=== PATIENT | female | born 1985 | race Caucasian/White ===

== ENCOUNTER 2020-08-23 10:52 | Emergency (ER) | payer MEDICAID, SELFPAY ==
[2020-08-23 11:34] LABS: Absolute Lymphocytes (CBC) 0.9 K/uL (0.7-4.9); Lymphocytes % 11.6 % (15.3-44.8); MPV 8.9 fL (7.6-11.3); RBC Red Blood Cell Count 3.96 M/uL (3.86-4.86)
[2020-08-23] MEDS ORDERED: NA CHLORIDE 0.9% 1,000 ML ONE (11:49)
[2020-08-23] MEDS ORDERED: ONDANSETRON 4 MG/2 ML VIAL ONE (11:49)
[2020-08-23 11:54] LABS: Albumin 4.2 g/dL (3.4-5.0); Bilirubin Direct 0.2 mg/dL (0-0.2); Bilirubin Total 0.6 mg/dL (0.2-1.0); Potassium 3.8 mmol/L (3.5-5.1); Protein, Total 8.2 g/dL (6.4-8.2)
[2020-08-23 12:59] LABS: Blood Morphology Comment NOT SEEN (NOT SEEN); Platelet Estimate ADEQ
[2020-08-23] MEDS ORDERED: KETOROLAC 30 MG/ML INJ ONE (12:59)
--- NOTE | 2020-08-23 13:16 | RAD REPORT ---
EXAM DESCRIPTION: CTAbdomen Pelvis W Contrast - 08/23/2020 1:05 pm CLINICAL HISTORY: Abdominal pain. ABD PAIN COMPARISON: No comparisons TECHNIQUE: Biphasic CT imaging of the abdomen and pelvis was performed with 100 ml non-ionic IV cont rast. All CT scans are performed using dose optimization technique as appropriate and may include automated exposure control or mA/KV adjustment according to patient size. FINDINGS: The lung bases are clear. The liver, spleen, pancreas, adrenal glands and kidneys are within normal limits. No bowel obstruction, free air, free fluid or abscess. The appendix is normal. No evidence of signi ficant lymphadenopathy. No suspicious bony findings. IMPRESSION: No acute intra-abdominal or pelvic finding.
--- NOTE | 2020-08-23 13:28 | ER ---
Nurse's Notes [facility] Name: Petra Aj Age: 35 yrs Sex: Female : 1985 Arrival Date: 08/23/2020 Time: 10:55 Bed 2 Private MD: Diagnosis: Nausea and vomiting;Diarrhea, unspecified Presentation: 08/23 11:01 Chief complaint: Patient states: N/VD with abdominal pain since 5 am. No fever. ll1 Coronavirus screen: Client denies travel out of the [place] in the last 14 days. At this time, the client does not indicate any symptoms associated with coronavirus-19. Ebola Screen: Patient denies travel to an Ebola-affected area in the 21 days before illness onset. Initial Sepsis Screen: Does the patient meet any 2 criteria? No. Patient's initial sepsis screen is negative. Risk Assessment: Do you want to hurt yourself or someone else? Patient reports no desire to harm self or others. Onset of symptoms was August 23, 2020. 11:01 Method Of Arrival: Wheelchair ll1 11:01 Acuity: ARNOLD 3 ll1 11:45 Initial Sepsis Screen: Does the patient have a suspected source of infection? No. ph Patient's initial sepsis screen is negative. Historical: - Allergies: 11:01 PENICILLINS; ll1 - PSHx: 11:01 None; ll1 - Immunization history:: Flu vaccine is not up to date. - Social history:: Smoking status: Patient reports the use of cigarette tobacco products, smokes one-half pack cigarettes per day. Screenin:44 Abuse screen: Denies threats or abuse. Denies injuries from another. Nutritional ph screening: No deficits noted. Tuberculosis screening: No symptoms or risk factors identified. Fall Risk None identified. Assessment: 11:43 General: Appears in no apparent distress. uncomfortable, slender, well groomed, ph Behavior is cooperative, anxious, Denies fever. Pain: Complains of pain in abdomen. Neuro: Level of Consciousness is awake, alert, obeys commands, Oriented to person, place, time, situation. Cardiovascular: Capillary refill < 3 seconds in bilateral fingers Patient's skin is warm and dry. Respiratory: Airway is patent Respiratory effort is even, unlabored, Respiratory pattern is regular, symmetrical. GI: Abdomen is flat, Reports diarrhea, nausea, vomiting. Derm: Skin is intact, is healthy with good turgor, Skin is pink, warm \T\ dry. Musculoskeletal: Circulation, motion, and sensation intact. Range of motion: intact in all extremities. Vital Signs: 11:01 BP 131 / 84; Pulse 86; Resp 17; Temp 98.3; Pulse Ox 97% ; Weight 68.04 kg; Height 5 ft. ll1 5 in. (165.10 cm); Pain 6/10; 11:45 BP 128 / 78; Pulse 81; Resp 18; Pulse Ox 99% on R/A; ph 13:00 BP 124 / 72; Pulse 77; Resp 16; Pulse Ox 98% on R/A; ph 14:12 BP 126 / 78; Pulse 79; Resp 16; Temp 97.8; Pulse Ox 98% on R/A; ph 11:01 Body Mass Index 24.96 (68.04 kg, 165.10 cm) ll1 ED Course: 10:55 Patient arrived in ED. mr 10:56 Xenia Fields [facility]-C [facility]. kb 10:56 Alden Abdullahi MD is Attending Physician. kb 11:03 Triage completed. ll1 11:03 Arm band placed on Patient placed in an exam room, on a stretcher. ll1 11:09 Elicia Ko, RN is Primary Nurse. ph 11:20 Initial lab(s) drawn, by me, sent to lab. Inserted saline lock: 20 gauge in right dh3 antecubital area, using aseptic technique. Blood collected. 11:44 Patient has correct armband on for positive identification. Bed in low position. Call ph light in reach. Side rails up X 1. Pulse ox on. NIBP on. Door closed. Noise minimized. Warm blanket given. 13:05 CT Abd/Pelvis - IV Contrast Only In Process Unspecified. EDMS 14:13 No provider procedures requiring assistance completed. IV discontinued, intact, ph bleeding controlled, No redness/swelling at site. Pressure dressing applied. Administered Medications: 11:41 Drug: NS 0.9% 1000 ml Route: IV; Rate: 1000 ml; Site: right antecubital; ph 14:13 Follow up: Response: No adverse reaction; IV Status: Completed infusion; IV Intake: ph 1000ml 11:41 Drug: Zofran (Ondansetron) 4 mg Route: IVP; Site: right antecubital; ph 14:14 Follow up: Response: No adverse reaction; Nausea is decreased ph 12:49 Drug: TORadol 30 mg Route: IVP; Site: right antecubital; ph 14:14 Follow up: Response: No adverse reaction ph 13:37 Drug: Bentyl 20 mg Route: PO; em 14:14 Follow up: Response: No adverse reaction ph Intake: 14:13 IV: 1000ml; Total: 1000ml. ph Outcome: 13:28 Discharge ordered by . kb 14:13 Discharged to home ambulatory, with family. ph 14:13 Condition: good 14:13 Discharge instructions given to patient, Instructed on discharge instructions, follow up and referral plans. medication usage, Demonstrated understanding of instructions, follow-up care, medications, Prescriptions given X 2. 14:14 Patient left the ED. ph Signatures: Dispatcher [employer] EDXenia Ramirez, CAR WIPER-C CAR WIPER-Alexa Marie Edgar, RN Elicia Davey RN RN Priscilla Canela [facility] Kelly Lopez RN RN ll1
--- NOTE | 2020-08-23 13:29 | EDPHYS ---
Physician Documentation [facility] Name: Petra Aj Age: 35 yrs Sex: Female : 1985 Arrival Date: 08/23/2020 Time: 10:55 Bed 2 Private MD: ED Physician Alden Abdullahi HPI: 08/23 12:22 This 35 yrs old Female presents to ER via Wheelchair with complaints of kb Abdominal Pain, Vomiting. 12:22 The patient presents with abdominal pain. Onset: The symptoms/episode began/occurred kb this morning, at 05:00. The symptoms do not radiate. Associated signs and symptoms: Pertinent positives: nausea, vomiting, and diarrhea, Pertinent negatives: fever. The symptoms are described as constant. Modifying factors: The symptoms are alleviated by nothing, the symptoms are aggravated by nothing. Severity of pain: At its worst the pain was mild in the emergency department the pain is unchanged. The patient has not experienced similar symptoms in the past. The patient has not recently seen a physician. Historical: - Allergies: 11:01 PENICILLINS; ll1 - PSHx: 11:01 None; ll1 - Immunization history:: Flu vaccine is not up to date. - Social history:: Smoking status: Patient reports the use of cigarette tobacco products, smokes one-half pack cigarettes per day. ROS: 12:20 Constitutional: Negative for fever, chills, and weight loss, Cardiovascular: Negative kb for chest pain, palpitations, and edema, Respiratory: Negative for shortness of breath, cough, wheezing, and pleuritic chest pain, Back: Negative for injury and pain, MS/Extremity: Negative for injury and deformity, Skin: Negative for injury, rash, and discoloration, Neuro: Negative for headache, weakness, numbness, tingling, and seizure. 12:20 Abdomen/GI: Positive for abdominal pain, nausea, vomiting, and diarrhea, Negative for constipation, abdominal cramps, abdominal distension, anorexia. Exam: 12:20 Constitutional: This is a well developed, well nourished patient who is awake, alert, kb and in no acute distress. Head/Face: Normocephalic, atraumatic. Chest/axilla: Normal chest wall appearance and motion. Nontender with no deformity. No lesions are appreciated. Cardiovascular: Regular rate and rhythm with a normal S1 and S2. No gallops, murmurs, or rubs. Normal PMI, no JVD. No pulse deficits. Respiratory: Lungs have equal breath sounds bilaterally, clear to auscultation and percussion. No rales, rhonchi or wheezes noted. No increased work of breathing, no retractions or nasal flaring. Back: No spinal tenderness. No costovertebral tenderness. Full range of motion. Skin: Warm, dry with normal turgor. Normal color with no rashes, no lesions, and no evidence of cellulitis. MS/ Extremity: Pulses equal, no cyanosis. Neurovascular intact. Full, normal range of motion. Neuro: Awake and alert, GCS 15, oriented to person, place, time, and situation. Cranial nerves II-XII grossly intact. Motor strength 5/5 in all extremities. Sensory grossly intact. Cerebellar exam normal. Normal gait. 12:20 Abdomen/GI: Inspection: abdomen appears normal, Bowel sounds: normal, in all quadrants, Palpation: soft, in all quadrants, mild abdominal tenderness, in the abdomen diffusely. Vital Signs: 11:01 BP 131 / 84; Pulse 86; Resp 17; Temp 98.3; Pulse Ox 97% ; Weight 68.04 kg; Height 5 ft. ll1 5 in. (165.10 cm); Pain 6/10; 11:45 BP 128 / 78; Pulse 81; Resp 18; Pulse Ox 99% on R/A; ph 13:00 BP 124 / 72; Pulse 77; Resp 16; Pulse Ox 98% on R/A; ph 14:12 BP 126 / 78; Pulse 79; Resp 16; Temp 97.8; Pulse Ox 98% on R/A; ph 11:01 Body Mass Index 24.96 (68.04 kg, 165.10 cm) ll1 MDM: 11:04 Patient medically screened. kb 12:20 Data reviewed: vital signs, nurses notes. Data interpreted: Pulse oximetry: on room air kb is 97 %. Interpretation: normal. 13:22 Counseling: I had a detailed discussion with the patient and/or guardian regarding: the kb historical points, exam findings, and any diagnostic results supporting the discharge/admit diagnosis, lab results, radiology results, the need for outpatient follow up, a family practitioner, to return to the emergency department if symptoms worsen or persist or if there are any questions or concerns that arise at home. 10/05 11:05 Order name: Basic Metabolic Panel; Complete Time: 11:55 kb 08/23 11:05 Order name: CBC with Diff; Complete Time: 13:00 kb 08/23 11:05 Order name: Hepatic Function; Complete Time: 11:55 kb 08/23 11:05 Order name: Lipase; Complete Time: 11:55 kb 08/23 12:54 Order name: Urine Dipstick--Ancillary (enter results) bd 08/23 12:54 Order name: Urine --Ancillary (enter results) bd 08/23 11:05 Order name: IV Saline Lock; Complete Time: 11:21 kb 08/23 11:05 Order name: Labs collected and sent; Complete Time: 11:22 kb 08/23 11:56 Order name: CT Abd/Pelvis - IV Contrast Only; Complete Time: 13:20 kb 08/23 12:59 Order name: Manual Differential; Complete Time: 13:00 EDMS 08/23 11:56 Order name: Urine Dipstick-Ancillary (obtain specimen); Complete Time: 12:49 kb 08/23 11:56 Order name: Urine Test (obtain specimen); Complete Time: 12:49 kb 08/23 13:22 Order name: PO challenge; Complete Time: 13:37 kb Administered Medications: 11:41 Drug: NS 0.9% 1000 ml Route: IV; Rate: 1000 ml; Site: right antecubital; ph 14:13 Follow up: Response: No adverse reaction; IV Status: Completed infusion; IV Intake: ph 1000ml 11:41 Drug: Zofran (Ondansetron) 4 mg Route: IVP; Site: right antecubital; ph 14:14 Follow up: Response: No adverse reaction; Nausea is decreased ph 12:49 Drug: TORadol 30 mg Route: IVP; Site: right antecubital; ph 14:14 Follow up: Response: No adverse reaction ph 13:37 Drug: Bentyl 20 mg Route: PO; em 14:14 Follow up: Response: No adverse reaction ph Disposition: 17:57 Co-signature as Attending Physician, Alden Abdullahi MD. rn Disposition: 08/23/20 13:28 Discharged to Home. Impression: Nausea and vomiting, Diarrhea, unspecified. - Condition is Stable. - Discharge Instructions: Viral Gastroenteritis, Adult, [id number]. - Prescriptions for Bentyl 20 mg Oral Tablet - take 1 tablet by ORAL route every 6 hours As needed; 20 tablet. Zofran 4 mg Oral Tablet - take 1 tablet by ORAL route every 6 hours As needed; 20 tablet. - Medication Reconciliation Form, Thank You Letter, Antibiotic Education, Prescription Opioid Use form. - Follow up: Emergency Department; When: As needed; Reason: Worsening of condition. Follow up: Private Physician; When: 2 - 3 days; Reason: Recheck today's complaints, Continuance of care, Re-evaluation by your physician. Signatures: Dispatcher [employer] EDMS Xenia Fields, DEVELOPMENT TECHNOLOGIST-C DEVELOPMENT TECHNOLOGIST-Marek Tovar, RN RN Alden Figueroa MD MD rn Hall, Patricia, RN RN Kelly Lopez RN RN ll1 Corrections: (The following items were deleted from the chart) 14:14 13:28 08/23/2020 13:28 Discharged to Home. Impression: Nausea and vomiting; Diarrhea, ph unspecified. Condition is Stable. Forms are Medication Reconciliation Form, Thank You Letter, Antibiotic Education, Prescription Opioid Use. Follow up: Emergency Department; When: As needed; Reason: Worsening of condition. Follow up: Private Physician; When: 2 - 3 days; Reason: Recheck today's complaints, Continuance of care, Re-evaluation by your physician. kb
[2020-08-23] MEDS ORDERED: DICYCLOMINE HCL 10 MG CAP ONE (13:42)
[2020-08-23 14:16] LABS: Urine Blood TRACE (NEG); Urine Glucose NEGATIVE (NEG); Urine Protein NEGATIVE (NEG); Urine Specific Gravity >1.030 (1.005-1.030)
[2020-08-23 14:47] VITALS: O2SAT 98
[2020-08-23 14:48] VITALS: BP 126/78; TEMP 97.8
--- OUTSIDE RECORDS SUMMARY | 2020-08-26 05:52 | XMS REPORT | Summary of Care ---
:1985 Author Organization [facility] - Health Address [address] [place] [address] Care Team Providers Name Role Phone Peggy Castaneda Primary Care Provider Encounter Details Date Type Department Care Team Description 07/08/2020 Letter (Out) [facility] [employer] Message s Doctor Unassigned, No [address] [facility] [place] [phone] [address] [facility] [phone] [place] [address] Allergies Active Allergy Reactions Severity Noted Date Comments Penicillins Hives 11/24/2012 documented as of this encounter (statuses as of 07/08/2020) Medications Medication Sig Dispensed Refills Start Date End Date Status HYDROcodone-acetaminop Take 1 Tab by 25 Tab 0 01/07/2013 Active hen (NORCO) 5-325 mg mouth every 4 tabletIndications: (four) hours as Unspecified dental needed for Pain caries unrelieved by non-narcotic analgesics. chlorhexidine Swish and spit out 1 Bottle 0 01/07/2013 Active (PERIDEX) 0.12 % 15 mL 2 (two) mouthwashIndications: times daily. Unspecified dental caries documented as of this encounter (statuses as of 07/08/2020) Active Problems Problem Noted Date Dental caries 12/03/2012 Overview: ICD10 Diagnosis Term Regulatory Leader Utility documented as of this encounter (statuses as of 07/08/2020) Social History Tobacco Use Types Packs/Day Years Used Date Current Every Day Smoker Alcohol Use Drinks/Week oz/Week Comments Not Asked Sex Assigned at Date Recorded Not on file documented as of this encounter Last Filed Vital Signs Not on filedocumented in this encounter Plan of Treatment Date Type Specialty Care Team Description 07/08/2020 Urgent Care Family Medicine Megan Pascual, CRICKET COACH [address] [id number] Pob1, Acute Care Clinic Health Maintenance Due Date Last Done Comments VARICELLA VACCINES (1 of 2 - 1988 2-dose childhood series) Depression Screening 1999 DTaP,Tdap,and Td Vaccines (1 2006 - Tdap) PAP SMEAR 02/01/2013 02/01/2010, 05/16/2005 INFLUENZA VACCINE (#1) 2020 PNEUMOCOCCAL 0-64 YEARS Aged Out No longe r eligible based COMBINED SERIES on patient's age to complete this to pic documented as of this encounter Results Not on filedocumented in this encounter
--- OUTSIDE RECORDS SUMMARY | 2020-08-26 05:52 | XMS REPORT | Continuity of Care Document ---
:1985 Author Organization [facility] t Address [address] [place] [address] Care Team Providers Name Role Phone Pob1, Care Clinic Attending Clinician Unavailable Doctor Unassigned, Name Attending Clinician Unavailable Problems This patient has no known problems. Allergies, Adverse Reactions, Alerts This patient has no known allergies or adverse reactions. Medications This patient has no known medications. Procedures This patient has no known procedures. Encounters Start End Encounter Admission Attending Care Care Encounter Source Date/Time Date/Time Type Type Clinicians Facility Department ID 2020-07-08 2020-07-08 Urgent Pob1, Acute [facility] [id number] 15:42:00 16:23:36 [facility] [id number] [place] [id number] Chris [phone] [address] 2020-07-08 2020-07-08 Letter Doctor MOOKIE [id number] 00:00:00 00:00:00 (Out) Unassigned, [place] [id number] [place] [facility] [phone] [id number] Results This patient has no known results.
--- OUTSIDE RECORDS SUMMARY | 2020-08-26 05:52 | XMS REPORT | Summary of Care ---
:1985 Author Organization [facility] - Health Address [address] [place] [address] Care Team Providers Name Role Phone Peggy Castaneda Primary Care Provider Reason for Visit Reason Comments URI Shortness of Breath Encounter Details Date Type Department Care Team Description 07/08/[address] [facility] Family Humaira Pascual, MARIA ESTHER [address] [place] [id number] Acute URI (Primary Dx); [facility] Exposure to Covid-19 Virus; [address] [place] [address] Tobacco use disorder; [place], [place] Encounter for s moking cessation counseling [id number] Allergies Active Allergy Reactions Severity Noted Date Comments Penicillins Hives 11/24/2012 documented as of this encounter (statuses as of 07/08/2020) Medications Medication Sig Dispensed Refills Start Date End Date Status HYDROcodone-acetam Take 1 Tab by 25 Tab 0 01/07/2013 Discontinued inophen (NORCO) mouth every 4 20 (Therapy 5-325 mg (four) hours as comp leted) tabletIndications: needed for Pain Unspecified dental unrelieved by caries non-narcotic analgesics. chlorhexidine Swish and spit 1 Bottle 0 01/07/2013 07/08/20 Discontinued (PERIDEX) 0.12 % out 15 mL 2 20 ( Therapy mouthwashIndicatio (two) times completed) ns: Unspecified daily. 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 documented as of this encounter (statuses as of 07/08/2020) Social History Tobacco Use Types Packs/Day Years Used Date Current Every Day Smoker Smokeless Tobacco: Never Used Alcohol Use Drinks/Week oz/Week Comments Not Asked Sex Assigned at Date Recorded Not on file documented as of this encounter Last Filed Vital Signs Vital Sign Reading Time Taken Comments Blood Pressure 120/70 07/08/2020 3:59 PM CDT Pulse 78 07/08/2020 3:59 PM CDT Temperature 37.1 C (98.8 F) 07/08/2020 3:59 PM CDT Respiratory Rate 18 07/08/2020 3:59 PM CDT Oxygen Saturation 98% 07/08/2020 3:59 PM CDT Inhaled Oxygen Concentration - - Weight 68 kg (150 lb) 07/08/2020 3:59 PM CDT Height 170.2 cm (5' 7") 07/08/2020 3:59 PM CDT Body Mass Index 23.49 07/08/2020 3:59 PM CDT documented in this encounter Patient Instructions Patient InstructionsEkaterina Aquino PA - 07/08/2020 4:00 PM CDT Patient Education Understanding Coronavirus Disease 2019 (COVID-19) Coronavirus disease 2019 (COVID-19) is a respiratory illness. It's caused by a new (novel) coronavirus called SARS-CoV-2. There are many types of coronavirus. Coronaviruses are a very common cause of bronchitis. They may sometimes cause lung infection (pneumonia). Symptoms can range from mild to severe respiratory illness. These viruses are also found in some animals. COVID-19 was first found in people in [facility], in late 2019.COVID-19 is a rapidly-emerging infectious disease. This means thatscientists are actively researching it.There are information updates regularly. Public health officials are working to find the source. How the virus spreads is not yet fully understood, but it seems to spread and infect people fairly easily. Some people who have been infected in an area may be unsure how or where they became infected. The virus may be spread through droplets of fluid that a person coughs or sneezes into the air. It may be spread if you touch a surface with virus on it, such as a handle or object, and then touch your eyes, nose, or mouth. For the latest information, visit the CDC website at www.cdc.gov/coronavirus/2019-ncov. Or call 784-GZM-RASX (943-680-5050). What are the symptoms of COVID-19? Some people have no symptoms or mild symptoms. Symptoms may appear 2 to 14 days after contact with the virus. Symptoms can include: Fever Coughing Trouble breathing What are possible complications from COVID-19? In many cases, this virus can cause infection (pneumonia) in both lungs. In some cases, this can cause . Certain people are at higher risk for complications. This includes older adults and people with serious chronic health conditions such as heart or lung disease or diabetes. How is COVID-19 diagnosed? Your healthcare provider will ask about your symptoms. He or she will also ask about your recent travel and contact with sick people. If your healthcare provider thinks you may have COVID-19, he or shewill work closely with your local health department on testing. Follow all instructions from your healthcare provider. COVID-19 is diagnosed by: Nose and throat swab. A cotton-tipped swab is wiped inside your nose or throat. This is done to check for viruses in your nasal mucus. Sputum culture. A small sample of mucus coughed from your lungs (sputum) is collected if you havea cough. It's checked for the virus. How is COVID-19 treated? There is currently no medicine to treat the virus. Treatment is done to help your body while it fights the virus. This is known as supportive care. Supportive care may include: Getting rest. This helps your body fight the illness. Staying hydrated. Drink 6 to 8 glasses of liquids every day. Good choices are water, sport drinks, soft drinks without caffeine, juices, tea, and soup. Taking pain medicine. These may include acetaminophen and ibuprofen. They are used to help ease pain and reduce fever. Follow your healthcare provider's instructions. For severe illness, you may need to stay in the hospital. Care during severe illness may include: IV (intravenous) fluids. These are given through a vein to help keep your body hydrated. Oxygen. Supplemental oxygen or ventilation with a breathing machine (ventilator) may be given. This is done so you get enough oxygen in your body. Are you at risk for COVID-19? You are at risk for infection if youve been to a place where people have been sick with this virus or if there are people with COVID-19 in your area. You are at risk if you: Recently traveled to an area with a COVID-19 outbreak Had contact with a sick person who recently traveled to an area with a COVID- 19 outbreak Had contact with a person who was diagnosed with or who may have COVID-19 How can COVID-19 be prevented? There is no vaccine yet. The best prevention is to not have contact with the virus. The CDC advises that people should not travel to areas where there are COVID-19 outbreaks right now for any reason that is not urgent. For the most current CDC travel advisories, visit the CDC website at www.cdc.gov/cor onavirus/2019-ncov/travelers. To help prevent spreading the infection, wash your hands often, or use an alcohol-based hand engineer technician. The CDC advises that you should not wear a facemask if you are not sick. Prepare and protect yourself from COVID-19: Wash your hands often with soap and clean, running water for at least 20 seconds. If you don't have access to soap and water, use an alcohol-based hand engineer technician often. Make sure it has at least 60% alcohol. Don't touch your eyes, nose, or mouth unless you have clean hands. As much as possible, don't touch "high-touch" public surfaces such as doorknobs. Don't shake hands. Clean home and work surfaces often with disinfectant. Cough or sneeze into a tissue, then throw the tissue into the trash. If you don't have tissues, cough or sneeze into the bend of your elbow. Stay informed about COVID-19 in your area. Follow local instructions about being in public. Be aware of events in your community that may be postponed or canceled such as school and sporting events.You may be advised not to attend public gatherings. You will be advised to stay about 6 feet from others as much as possible. This is called "social distancing." The CDC advises wearing a cloth face mask in public. During a public health emergency, medical face masks may be reserved for healthcare workers. You may need to make a cloth face mask of your own. You can do this using a bandana, T- shirt, or other cloth. The [facility] hasinstructions on how to make a mask. Check your home supplies. Consider keeping a 2-week supply of medicines, food, and other needed household items. Make a plan for childcare, work, and ways to stay in touch with others. Know who will help you ifyou get sick. Don't be around people who are sick. There is no evidence right now that animals spread SARS-CoV-2. But it's always a good idea to wash your hands after touching any animals. Don't touch animals that may be sick. Dont share eating or drinking utensils with sick people. Dont kiss someone who is sick. If you were in an area with COVID-19 in the last 14 days: Call your healthcare provider and follow all instructions. Your activities and where you go may be restricted for up to 2 weeks. You may be directed to stay home, or "self-quarantine." Take your temperature every morning and evening for at least 14 days. This is to check for fever.Keep a record of the readings. Watch for symptoms of the virus. Call your provider if you have symptoms. Call your provider first before going to any clinic or hospital. Stay home if you are sick for any reason. If you are sick with COVID-19 symptoms: Stay home. Call your healthcare provider and tell them you have symptoms of COVID-19. Do this before going to any hospital or clinic. Follow your provider's instructions. You may be advised to isolate yourself at home. This is called self-isolation . Dont panic. Keep in mind that other illnesses can cause similar symptoms. Stay away from work, school, and public places. Limit physical contact with family members. Limitvisitors. Don't kiss anyone or share eating or drinking utensils. Clean surfaces you touch with disinfectant. This is to help prevent the virus from spreading. Cough or sneeze into a tissue, then throw away the tissue in the trash. If you don't have tissues, cough or sneeze into the bend of your elbow. Wear a facemask only if you have symptoms If you need to go in to a hospital or clinic, expect that the healthcare staff will wear protective equipment such as masks, gowns, gloves, and eye protection. You may be put in a separate room. This is to prevent the possible virus from spreading. Tell the healthcare staff about recent travel. This includes local travel on public transport. Staff may need to find other people you have been in contact with. Follow all instructions the healthcare staff give you. If you have been diagnosed with COVID-19 Stay home. Dont leave your home unless you need to get medical care. Don't go to work, school,or public areas. Don't use public transportation or taxis. Follow all instructions from your healthcare provider. Call your healthcare providers office before going. They can prepare and give you instructions. This will help prevent the virus from spreading. If you need to go to a hospital or clinic, expect that the healthcare staff will wear protective equipment such as masks, gowns, gloves, and eye protection. You may be put in a separate room. This is to prevent the possible virus from spreading. Wear a face mask. This is to protect other people from your germs. If you are not able to wear a mask, your caregivers should. Stay away from other people in your home. Limit contact with pets and animals. Although there are no reports of pets getting sick with COVID-19, consider limiting contact with pets until more is known. Dont share household items or food. Cover your face with a tissue when you cough or sneeze. Throw the tissue away. Then wash your hands. Wash your hands often. If you are caring for a sick person: Follow all instructions from healthcare staff. Wash your hands often. Wear protective clothing as advised. Make sure the sick person wears a mask. If they can't wear a mask, don't stay in the same room with the person. If you must be in the same room, wear a facemask. Keep track of the sick persons symptoms. Clean surfaces, fabrics, and laundry thoroughly. Keep other people and pets away from the sick person. When to call your healthcare provider Call your healthcare provider right away: If youve recently traveled or have been in an area with COVID-19 and have symptoms If you have been diagnosed with COVID-19 and your symptoms are worse Date last modified: 02/23/2020 [employer] video last reviewed this educational content on 11/19/201919993138-3314 [employer]. [address] [place] [address], [place] [address]. All rights reserved. This information is not intended as a substitute for professional medical care. Always follow your healthcare professional's instructions. documented in this encounter Progress Notes Ekaterina Aquino PA - 07/08/2020 4:00 PM CDT Cc: Chief Complaint Patient presents with URI Shortness of Breath Petra Aj is a 35 year old female. Patient presents with URI symptoms. Travel: No. COVID19 exposure? Yes, father in law. PCP-Dr. Srinivasan Patient denies shortness of breath. Admits to occasional chest tightness with coughing, taking a deep breath. Mild. Intermittent. None now. Not exertional. Possibly related to anxiety. 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 No associated palpitations, shortness of breath, dyspnea, hemoptysis, le edema, dizziness, syncope. URI Presenting symptoms: congestion, cough and fatigue Presenting symptoms: no ear pain, no facial pain, no fever, no rhinorrhea and no sore throat Duration: 4 days Timing: Intermittent Progression: Unchanged Chronicity: New Worsened by: Nothing Associated symptoms: arthralgias, headaches, sinus pain and sneezing Associated symptoms: no myalgias, no neck pain, no swollen glands and no wheezing Risk factors: sick contacts Risk factors: not elderly, no chronic cardiac disease, no chronic kidney disease, no chronic respiratory disease, no diabetes mellitus, no immunosuppression, no recent illness and no recent travel Allergies Petra is allergic to penicillins. Medications No current outpatient medications on file. No current facility-administered medications for this visit. Histories History reviewed. No pertinent past medical history. History reviewed. No pertinent surgical history. Social History Socioeconomic History Marital status: Single Spouse name: Not on file Number of children: Not on file Years of education: Not on file Highest education level: Not on file Occupational History Not on file Social Needs Financial resource strain: Not on file Food insecurity Worry: Not on file Inability: Not on file Transportation needs Medical: Not on file Non-medical: Not on file Tobacco Use Smoking status: Current Every Day Smoker Smokeless tobacco: Never Used Substance and Sexual Activity Alcohol use: Not on file Drug use: Not on file Sexual activity: Not on file Lifestyle Physical activity Days per week: Not on file Minutes per session: Not on file Stress: Not on file Relationships Social connections Talks on phone: Not on file Gets together: Not on file Attends lutheran service: Not on file Active member of club or organization: Not on file Attends meetings of clubs or organizations: Not on file Relationship status: Not on file Intimate partner violence Fear of current or ex partner: Not on file Emotionally abused: Not on file Physically abused: Not on file Forced sexual activity: Not on file Other Topics Concern Not on file Social History Narrative Lives at home with and 2 kids. Family History Problem Relation Age of Onset No Significant Medical Problems Mother No Significant Medical Problems Father Review of Systems Constitutional: Positive for fatigue. Negative for activity change, appetite change, chills, diaphoresis and fever. HENT: Positive for congestion, postnasal drip, sinus pain and sneezing. Negative for ear discharge, ear pain, facial swelling, rhinorrhea, sinus pressure, sore throat, trouble swallowing and voice change. Eyes: Negative for pain, discharge, redness and itching. Respiratory: Positive for cough and chest tightness. Negative for apnea, choking, wheezing and stridor. Cardiovascular: Negative for leg swelling. Gastrointestinal: Negative for abdominal pain, constipation, diarrhea and vomiting. Musculoskeletal: Positive for arthralgias. Negative for back pain, gait problem, joint swelling, myalgias, neck pain and neck stiffness. Skin: Negative for color change and rash. Neurological: Positive for headaches. Negative for syncope, weakness and light-headedness. Vital Signs BP 120/70 | Pulse 78 | Temp 37.1 C (98.8 F) (Oral) | Resp 18 | Ht 5' 7" (1.702 m) | Wt 150 lb (68 kg) | LMP 2020 | SpO2 98% | BMI 23.49 kg/m Physical Exam Vitals signs and nursing note reviewed. Constitutional: General: She is not in acute distress. Appearance: She is well-developed. She is not ill-appearing, toxic-appearing or diaphoretic. HENT: Head: Normocephalic and atraumatic. Right Ear: External ear normal. Left Ear: External ear normal. Nose: Nose normal. Mouth/Throat: Pharynx: Oropharynx is clear. Eyes: General: Right eye: No discharge. Left eye: No discharge. Conjunctiva/sclera: Conjunctivae normal. Neck: Musculoskeletal: Normal range of motion. Cardiovascular: Rate and Rhythm: Normal rate and regular rhythm. Heart sounds: Normal heart sounds. Pulmonary: Effort: Pulmonary effort is normal. No respiratory distress. Breath sounds: Normal breath sounds. No stridor. No wheezing, rhonchi or rales. Abdominal: General: Bowel sounds are normal. There is no distension. Palpations: Abdomen is soft. Tenderness: There is no abdominal tenderness. Musculoskeletal: Normal range of motion. Right lower leg: No edema. Left lower leg: No edema. Skin: General: Skin is warm and dry. Findings: No rash. Neurological: Mental Status: She is alert and oriented to person, place, and time. Psychiatric: Behavior: Behavior normal. Assessment/Plan Acute URI (primary encounter diagnosis) Exposure to Covid-19 Virus Plan: COVID-19 (PCR MOLECULAR TESTING), COVID-19 (PCR MOLECULAR TESTING) Afebrile, well appearing, non-toxic, NAD. HR < 100, lungs CTAB, O2 sat 98%. COVID-19 test ordered. Educated on the following at home care: -Offered tessalon but patient refuses. Encouraged to take OTC Mucinex DM or Robitussin DM as needed -Increase water intake -Take over the counter vitamin C/multivitamin with vitamin C -Take Tylenol as needed, avoid nsaids -REST -Wash hands often -Cover mouth when coughing -Wear mask with in the same room/car as others -Gargle with warm salt water as needed -Drink warm liquids as needed. -Throat lozenges as needed -Smoking cessation recommended -Quarantine until your COVID results are back -Stay in your own bedroom and use a separate bathroom -Keep at least 6 feet from you and others -Avoid sharing personal household items, dishes, glasses, cups, towels -Clean high traffic/touch areas daily. These include but not limited to: doorknobs, refrigerator/cabinet handles, phones, keyboards, tablets, light switches. -Monitor your symptoms. Take your temperature 2 times daily. -Follow-up with PCP as needed, if no improvement. -Monitor your symptoms. Go to the ED if worsening symptoms: chest pain, difficulty breathing, coughing up blood, weakness, dizziness, passing out, AMS. -[facility] handout provided Chest tightness Plan: COVID-19 (PCR MOLECULAR TESTING), COVID-19 (PCR MOLECULAR TESTING), EKG-12 LEAD ROUTINE None now. Reports occasional with coughing and sometimes if she takes a deep breath. Not exertional.Denies shortness of breath. Speaking in complete sentences without problem. No respiratory distress.No observed sob or dyspnea. No associated sob, dyspnea, hemoptysis, dizziness, syncope, n/v, diaphoresis. Lungs CTAB. O2 sat 98%. NAD. Encouraged EKG but patient refuses. COVID-19 test ordered. Encouraged CXR pending negative test but patient refuses both CXR and POCT test. Patientstates that she thinks it is from her feeling anxious about covid. Educated on at home anxiety management including meditation, breathing exercises, prayer, stress management. Encouraged to avoid smoking, caffeine, decongestants. Encouraged to follow-up with PCP. Strong ED precautions given. ER--> worsening condition; cp, shortness of breath, dyspnea, hemoptysis, dizziness, syncope, palpitations, n/v, diaphoresis. Tobacco use disorder Encounter for smoking cessation counseling Plan: Counseled on the importance including risk reduction/prevention and management. Patient reports understanding and agrees to taper down on her own. Pt ed/precautions given in detail regarding conditions/medicaitons. Er precautions given. Pt reportsunderstanding and agrees. rtc if s/s worsen or do not improve ; Plan of care, desired health behaviors, goals, Ddx, & any prescribed or OTC medications discussed with patient. Education resources & self management tools provided and reviewed with AVS. Patient/guardian/family verbalized understanding & agrees to plan of care. Barriers to care: NONE Ability to manage care: Good This visit did not involve counseling and coordination that comprised more than 50% of the visit time. Allie Sanchez MA - 07/08/2020 4:00 PM CDT Petra Aj is a 35 year old female here for Chief Complaint Patient presents with Shortness of Breath Duration of Symptoms: n/a [facility] Employee/Student? No Healthcare Worker? 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 No Known exposure? No Transplant patient or dialysis patient? No ? No Patient swabbed , both Nostrils. Patient educated on plan of care for visit, swabbing technique, risks and benefits of test and length of time to receive results. Verbal consent obtained to perform test. CDC Fact Sheet for Patients nCoV Diagnostic Panel dated 02/01/2020 and Factsheet What to Do if Sick with COVID 19 01/12/20 provided. All droplet and contact precautions taken with appropriate PPE worn while interacting with patient. ? Goggles ? N95 Mask ? Gloves ? Gown Allie Napier MA 07/08/2020 3:58 PM documented in this encounter Plan of Treatment Name Type Priority Associated Diagnoses Date/Ti me COVID-19 (PCR MOLECULAR LAB Routine Exposure to Covid -19 07/08/2020 3:49 PM CDT TESTING) Virus Acute URI Chest tightness Name Type Priority Associated Diagnoses Order S chedule COVID-19 (PCR LAB Routine Exposure to Covid-19 Expect ed: MOLECULAR TESTING) Virus 07/08/2020, Acute URI Expires: 07/08/2021 Chest tightness EKG-12 LEAD ROUTINE HEART STATION Routine Chest tightness Orde red: 07/08/2020 Health Maintenance Due Date Last Done Comments VARICELLA VACCINES (1 of 2 - 1988 2-dose childhood series) Depression Screening 1999 DTaP,Tdap,and Td Vaccines (1 2006 - Tdap) PAP SMEAR 02/01/2013 02/01/2010, 05/16/2005 INFLUENZA VACCINE (#1) 2020 PNEUMOCOCCAL 0-64 YEARS Aged Out No longe r eligible based COMBINED SERIES on patient's age to complete this to [facility] documented as of this encounter Results Not on filedocumented in this encounter Visit Diagnoses Diagnosis Acute URI - Primary Acute upper respiratory infections of un specified site Exposure to Covid-19 Virus Chest tightness Other chest pain Tobacco use disorder Encounter for smoking cessation counseli Counseling on substance use and abuse documented in this encounter Additional Health Concerns Infection Onset Date Last Indicated Resolved Time COVID-19 Rule Out 07/08/2020 07/08/2020 documented as of this encounter
== END 2020-08-23 14:14 | disposition home or self-care (01) ==
LOC: ER 10:52
DX: R19.7 Diarrhea, unspecified (principal); F17.210 Nicotine dependence, cigarettes, uncomplicated; Z88.0 Allergy status to penicillin
CPT/HCPCS: 36415; 74177; 80048; 80076; 81003; 81025; 83690; 85025; 96361; 96374; 96375; 99284; J2405; J7030; Q9967

== ENCOUNTER 2023-07-03 18:21 | Emergency (ER) | payer OTHER, SELFPAY ==
--- OUTSIDE RECORDS SUMMARY | 2023-07-03 18:26 | XMS REPORT | Continuity of Care Document ---
:1985 Author Organization [facility] t Address [address] [place] [address] Care Team Providers Name Role Phone NUZHAT CARLOS Primary Care Physician Unavailable NUZHAT CARLOS Attending Clinician Unavailable Nuzhat Carlos MD Attending Clinician Doctor Unassigned, [place] Attending Clinician Unavailable BUDDY STRONG Attending Clinician Unavailable Buddy Strong PA-C Attending Clinician Duong Contreras CRNA Attending Clinician Cassie Bajwa CRNA Attending Clinician Mookie Eugene MD Attending Clinician Only, [facility] Test Attending Clinician Unavailable Sonal Kennedy PT Attending Clinician Unavailable Barak Jacques MD Attending Clinician BARAK JACQUES Attending Clinician Unavailable 1, [facility] Us Room Attending Clinician Unavailable 2, [facility] Attending Clinician Unavailable Faviola Salinas Attending Clinician FAVIOLA CEBALLOS Attending Clinician Unavailable Gagan Ro Attending Clinician Juanita Vivas RN Attending Clinician Unavailable Nurse, [facility] Attending Clinician Unavailable Malini Pham RN Attending Clinician Unavailable Ultrasound, Ang-m Attending Clinician Unavailable Cici De Leon MD Attending Clinician [phone] CICI DE LEON Attending Clinician Unavailable ROWDY PATE Attending Clinician Unavailable Lu Benitez Attending Clinician Unavailable Rowdy Pate MD Attending Clinician 3, [facility] Room Attending Clinician Unavailable Kenneth Hayes MD Attending Clinician KENNETH HAYES Attending Clinician Unavailable TRUPTI BLACK Attending Clinician Unavailable Trupti Black MD Attending Clinician Pob, [facility] Main Attending Clinician Unavailable BRYNN SWANSON Attending Clinician Unavailable Brynn Swanson MD Attending Clinician SILVERIO SHAHID Attending Clinician Unavailable Silverio Hopper Attending Clinician Pcp, Patient Does Not Have A Attending Clinician [phone] Pob1, Acute [facility] Attending Clinician Unavailable Megan Smith Attending Clinician NUZHAT CARLOS Admitting Clinician Unavailable Nuzhat Carlos MD Admitting Clinician SILVERIO SHAHID Admitting Clinician Unavailable Payers Payer Name Policy Type Policy Number Effective Date Expiration Date [facility] [employer] [facility] [id number] 2016 HEALTH 00:00:00 [place]ICAID OF [place] [id number] 2022 00:00:00 Problems Condition Condition Condition Status Onset Resolution Last Treating Co mments Source Name Details Category Date Date Treatment Clinician Date S/P tubal S/P tubal Disease Active Uni vers ligation ligation 2-21 ity of 00:00: [place] 00 Medical Branch Tubal Tubal Disease Active Univers ligation ligation -09 it[place] of evaluation [place] Presence Presence Disease Active Unive rs of of 07-20 [place]uter[place]uter[place] Medical contracept contracept Br anch annette device annette device Pre-operat Pre-operat Disease Active U nivers annette annette 06-27 [place] evaluation [place] for tubal for tubal 00 Medi cr ligation ligation Branch 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 ICD10 Diagnosis Term Director Business Travel Utility Allergies, Adverse Reactions, Alerts Allergy Allergy Status Severity Reaction(s) Onset Inactive Treating Comm ents Source Name Type Date Date Clinician NO KNOWN Drug Active Univers ALLERGIE Class ity of S [facility] Social History Social Habit Start Date Stop Date Quantity Comments Source History of tobacco Cigarette Smoker University of use [facility] History formerly [facility] o [facility] o f Alcohol Std Drinks [facility] History formerly [facility] o f Alcohol Binge [facility] [place] Exposure to 2023-01-13 2023-01-23 Not sure University SARS-CoV-2 (event) 00:00:00 12:44:00 [facility] Alcohol intake 2023-01-23 2023-01-23 Ex-drinker University 00:00:00 00:00:00 (finding) [facility] Cigarettes smoked 2023-01-09 2023-01-09 Univers ity of current (pack per 00:00:00 00:00:00 [facility]) - Reported Branch Cigarette 2023-01-09 2023-01-09 University of pack-years 00:00:00 00:00:00 [facility] Tobacco use and 2023-01-09 2023-01-09 Smokeless Universit y of exposure 00:00:00 00:00:00 tobacco non-user [facility] Tobacco Comment 2022-06-27 2022-06-27 3 a week Universit y of 00:00:00 00:00:00 [facility] Alcohol Comment 2021-12-26 2021-12-26 social Universit y of 00:00:00 00:00:00 [facility] Sex Assigned At [birth year] Universit y of 00:00:00 00:00:00 [facility] Smoking Status Start Date Stop Date Source Smokes tobacco daily 2023-01-09 00:00:00 Univers ity of [facility] Medications Ordered Filled Start Stop Current Ordering Indication Dosage Frequency Signature Comments Components Source Medication Medication Date Date Medication? Clinician (SIG) Name Name morpHINE (2 Yes 2mg 2 mg, Slow Univers mg/mL) 01-09 IV Push, ity of injection 2 16:06: Q5MIN PRN, [place] mg 30 5 doses, Medical Starting Branch on Sun01/09/23 at 1006, Until Discontinu ed, Routine, Pain (scale 4-6), PACU ondansetron Yes 4mg 4 mg, Slow Univers (ZOFRAN 01-09 IV Push, ity of (PF)) 16:06: PRN, 1 [place] injection 4 30 dose, Medical mg Starting Branch on Sun01/09/23 at 1006, Until Discontinu ed, Routine, Nausea and Vomiting (N/V), PACU morpHINE (2 2022- No 2mg 2 mg, Slow Univers mg/mL) 01-09 IV Push, ity of injection 2 16:06: 22:16 Q5MIN PRN, [place] mg 30 :15 5 doses, Medical Starting Branch on Sun01/09/23 at 1006, Until Sun01/09/23 at 1616, Routine, Pain (scale 4-6), PACU ondansetron 0 2022- No 4mg 4 mg, Slow Univers (ZOFRAN 01-09 IV Push, ity of (PF)) 16:06: 22:16 PRN, 1 [place] injection 4 30 :15 dose, Medical mg Starting Branch on Sun01/09/23 at 1006, Until Sun01/09/23 at 1616, Routine, Nausea and Vomiting (N/V), PACU sodium 2022-0 Yes PRN, Univers chloride 01-09 Starting ity of 0.9 % 15:17: on [facility] irrigation 00 01/09/23 at [facility] ical solution 0917, Branch Until Discontinu ed, Intra-op bupivacaine 2022-0 Yes PRN, Univer s -epinephrin 01-09 Starting ity of e-pf 15:17: on [facility] (SENSORCAIN 00 01/09/23 at Co dicsd E 09, Branch W/EPINEPHRI Until NE) 0.5 Discontinu %-1:200,000 ed, injection Routine, Intra-op sodium 0 2022- No PRN, Univers chloride 01-09 Starting ity of 0.9 % 15:17: 22:16 on [facility] irrigation 00 :15 01/09/23 at [facility] ical solution 0917, Branch Until Sun01/09/23 at 1616, Intra-op bupivacaine 2022-0 2022- No PRN, Unive rs -epinephrin 01-09 Starting ity of e-pf 15:17: 22:16 on Sun [place] (SENSORCAIN 00 :15 01/09/23 at Co dicsd E 0917, Branch W/EPINEPHRI Until [facility] [place]) 0.5 01/09/23 at %-1:200,000 1616, injection Routine, Intra-op lactated 2022-0 2022- No 1000mL at 42 Unive rs ringers IV 01-09-21 mL/hr, ity of infusion 13:00: 12:54 1,000 mL, [facility] as 1,000 mL 00 :00 IV Medical Infusion, Branch ONCE, 1 dose, On Sun01/09/23 at 0700, Routine, DSU Pre-op lactated 2022-0 2022- No 1000mL at 42 Unive rs ringers IV 01-09-21 mL/hr, ity of infusion 13:00: 12:54 1,000 mL, [facility] as 1,000 mL 00 :00 IV Medical Infusion, Branch ONCE, 1 dose, On Sun01/09/23 at 0700, Routine, DSU Pre-op simethicone 2022-0 Yes [id number] 80mg Take 1 Univers 80 mg 2-21 tablet by ity of chewable 00:00: mouth [place] tablet 00 after Medical meals and Branch at bedtime. ibuprofen 2023-0 Yes [id number] 600mg Take 1 Univers 600 mg 2-21 tablet by ity of tablet 00:00: mouth [place] 00 every 6 Medical (six) Branch hours as needed for Pain (scale 1-3) or Pain (scale 4-6). acetaminoph 2023-0 Yes [id number] 650mg Take 2 Univers en 2-21 tablets by ity of (TYLENOL) 00:00: mouth [place] 325 mg 00 every 6 Medical tablet (six) Branch hours as needed for Pain (scale 1-3) or Pain (scale 4-6). simethicone 2023-0 Yes [id number] 80mg Take 1 Univers 80 mg 2-21 tablet by ity of chewable 00:00: mouth [place] tablet 00 after Medical meals and Branch at bedtime. ibuprofen 2023-0 Yes [id number] 600mg Take 1 Univers 600 mg 2-21 tablet by ity of tablet 00:00: mouth [place] 00 every 6 Medical (six) Branch hours as needed for Pain (scale 1-3) or Pain (scale 4-6). acetaminoph 2023-0 Yes [id number] 650mg Take 2 Univers en 2-21 tablets by ity of (TYLENOL) 00:00: mouth [place] 325 mg 00 every 6 Medical tablet (six) Branch hours as needed for Pain (scale 1-3) or Pain (scale 4-6). simethicone 2023-0 Yes [id number] 80mg Take 1 Univers 80 mg 2-21 tablet by ity of chewable 00:00: mouth [place] tablet 00 after Medical meals and Branch at bedtime. ibuprofen 2023-0 Yes [id number] 600mg Take 1 Univers 600 mg 2-21 tablet by ity of tablet 00:00: mouth [place] 00 every 6 Medical (six) Branch hours as needed for Pain (scale 1-3) or Pain (scale 4-6). acetaminoph 2023-0 Yes [id number] 650mg Take 2 Univers en 2-21 tablets by ity of (TYLENOL) 00:00: mouth [place] 325 mg 00 every 6 Medical tablet (six) Branch hours as needed for Pain (scale 1-3) or Pain (scale 4-6). simethicone 2023-0 Yes [id number] 80mg Take 1 Univers 80 mg 2-21 tablet by ity of chewable 00:00: mouth [place] tablet 00 after Medical meals and Branch at bedtime. ibuprofen 3-0 Yes [id number] 600mg Take 1 Univers 600 mg 2-21 tablet by ity of tablet 00:00: mouth [place] 00 every 6 Medical (six) Branch hours as needed for Pain (scale 1-3) or Pain (scale 4-6). acetaminoph 2023-0 Yes [id number] 650mg Take 2 Univers en 2-21 tablets by ity of (TYLENOL) 00:00: mouth [place] 325 mg 00 every 6 Medical tablet (six) Branch hours as needed for Pain (scale 1-3) or Pain (scale 4-6). simethicone 2022-0 2022- No [id number] 80mg Take 1 Univers 80 mg 2-21 03-07 tablet by ity of chewable 00:00: 00:00 mouth [place] tablet 00 :00 after Medical meals and Branch at bedtime. ibuprofen 2022-0 2022- No [id number] 600mg Take 1 Univers 600 mg 2-21 03-07 tablet by ity of tablet 00:00: 00:00 mouth [place] 00 :00 every 6 Medical (six) Branch hours as needed for Pain (scale 1-3) or Pain (scale 4-6). acetaminoph 2023-0 3- No [id number] 650mg Take 2 Univers en 2-21 03-07 tablets by ity of (TYLENOL) 00:00: 00:00 mouth [place] 325 mg 00 :00 every 6 Medical tablet (six) Branch hours as needed for Pain (scale 1-3) or Pain (scale 4-6). simethicone 3-0 3- No [id number] 80mg Take 1 Univers 80 mg 2-21 03-07 tablet by ity of chewable 00:00: 00:00 mouth [place] tablet 00 :00 after Medical meals and Branch at bedtime. ibuprofen 2023-0 3- No [id number] 600mg Take 1 Univers 600 mg 2-21 03-07 tablet by ity of tablet 00:00: 00:00 mouth [place] 00 :00 every 6 Medical (six) Branch hours as needed for Pain (scale 1-3) or Pain (scale 4-6). acetaminoph 2022- No [id number] 650mg Take 2 Univers en 2-21 03-07 tablets by ity of (TYLENOL) 00:00: 00:00 mouth [place] 325 mg 00 :00 every 6 Medical tablet (six) Branch hours as needed for Pain (scale 1-3) or Pain (scale 4-6). HYDROcodone No [id number] 1{tbl} Take 1 U nivers -acetaminop 2-21 -23 tablet by it y of hen 5-325 00:00: 05:59 mouth [place] mg tablet 00 :00 every 6 Medical (six) Branch hours as needed for Pain (scale 7-10) for up to 1 day. Indication s: acute pain HYDROcodone 2022- No [id number] 1{tbl} Take 1 U nivers -acetaminop 2-21 -23 tablet by it y of hen 5-325 00:00: 05:59 mouth [place] mg tablet 00 :00 every 6 Medical (six) Branch hours as needed for Pain (scale 7-10) for up to 1 day. Indication s: acute pain HYDROcodone No [id number] 1{tbl} Take 1 U nivers -acetaminop 2-21 -23 tablet by it y of hen 5-325 00:00: 05:59 mouth [place] mg tablet 00 :00 every 6 Medical (six) Branch hours as needed for Pain (scale 7-10) for up to 1 day. Indication s: acute pain norethindro 2021-11 Yes [id number] 1{tbl} Take 1 Univers ne 0.35 mg 0-03 tablet by ity of tablet 00:00: mouth in [place] 00 the Medical morning. Branch norethindro 2021-11 Yes [id number] 1{tbl} Take 1 Univers ne 0.35 mg 0-03 tablet by ity of tablet 00:00: mouth in [place] 00 the Medical morning. Branch norethindro 2021-11 Yes [id number] 1{tbl} Take 1 Univers ne 0.35 mg 0-03 tablet by ity of tablet 00:00: mouth in [place] 00 the Medical morning. Branch norethindro 2021-11- No [id number] 1{tbl} Take 1 Univers ne 0.35 mg 0-03 01-09 tablet by ity of tablet 00:00: 00:00 mouth in [place] 00 :00 the Medical morning. [place] norethindro 2021-11- No [id number] 1{tbl} Take 1 Univers ne 0.35 mg 0-03 -09 tablet by ity of tablet 00:00: 00:00 mouth in [place] 00 :00 the Medical morning. Branch norethindro 2021-11- No [id number] 1{tbl} Take 1 Univers ne 0.35 mg 0-03 -09 tablet by ity of tablet 00:00: 00:00 mouth in [place] 00 :00 the Medical morning. [place] copper 2021- No [id number] 1{IUD} Uni vers (PARAGARD T 07-20 ity of 380A) IUD 1 15:00: 14:05 [place] Intra 00 :00 Medical Uterine Branch Device copper 2021- No [id number] 1{IUD} 1 Intra Univers (PARAGARD T 07-20 Uterine ity of 380A) IUD 1 15:00: 14:05 [place] Intra 00 :00 Intrauteri Medical Uterine ne, ONCE, Branch Device 1 dose, On Sun07/20/22 at 1000, Routine miSOPROStoL 2021- No [id number] Take one Univers 200 mcg 8-30 07-20 tablet ity of tablet 00:00: 00:00 night [place] 00 :00 before Medical procedure, Branch then take one tablet morning of procedure SERTraline Yes [id number] 50mg Take 1 Univers (ZOLOFT) 50 8-09 tablet by ity of mg tablet 00:00: [place] 00 the Medical morning. [place] SERTraline Yes [id number] 50mg Take 1 Univers (ZOLOFT) 50 8-09 tablet by ity of mg tablet 00:00: [place] 00 the Medical morning. [place] SERTraline Yes [id number] 50mg Take 1 Univers (ZOLOFT) 50 8-09 tablet by ity of mg tablet 00:00: [place] 00 the Medical morning. [place] SERTraline 0 Yes [id number] 50mg Take 1 Univers (ZOLOFT) 50 8-09 tablet by ity of mg tablet 00:00: [place] 00 the Medical morning. Branch SERTraline 0 Yes [id number] 50mg Take 1 Univers (ZOLOFT) 50 8-09 tablet by ity of mg tablet 00:00: [place] 00 the Medical morning. Branch SERTraline 0 Yes [id number] 50mg Take 1 Univers (ZOLOFT) 50 8-09 tablet by ity of mg tablet 00:00: [place] 00 the Medical morning. Branch SERTraline 0 Yes [id number] 50mg Take 1 Univers (ZOLOFT) 50 8-09 tablet by ity of mg tablet 00:00: [place] 00 the Medical morning. Branch SERTraline 0 Yes [id number] 50mg Take 1 Univers (ZOLOFT) 50 8-09 tablet by ity of mg tablet 00:00: [place] 00 the Medical morning. Branch SERTraline 0 Yes [id number] 50mg Take 1 Univers (ZOLOFT) 50 8-09 tablet by ity of mg tablet 00:00: [place] 00 the Medical morning. Branch SERTraline 0 Yes [id number] 50mg Take 1 Univers (ZOLOFT) 50 8-09 tablet by ity of mg tablet 00:00: [place] 00 the Medical morning. Branch SERTraline 0 Yes [id number] 50mg Take 1 Univers (ZOLOFT) 50 8-09 tablet by ity of mg tablet 00:00: [place] 00 the Medical morning. Branch SERTraline 0 Yes [id number] 50mg Take 1 Univers (ZOLOFT) 50 8-09 tablet by ity of mg tablet 00:00: [place] 00 the Medical morning. Branch SERTraline 0 Yes [id number] 50mg Take 1 Univers (ZOLOFT) 50 8-09 tablet by ity of mg tablet 00:00: mouth [place] 00 the Medical morning. Branch SERTraline 2021-0 Yes [id number] 50mg Take 1 Univers (ZOLOFT) 50 8-09 tablet by ity of mg tablet 00:00: [place] 00 the Medical morning. Branch SERTraline 0 Yes [id number] 50mg Take 1 Univers (ZOLOFT) 50 8-09 tablet by ity of mg tablet 00:00: mouth [place] 00 the Medical morning. Branch SERTraline 0 Yes [id number] 50mg Take 1 Univers (ZOLOFT) 50 8-09 tablet by ity of mg tablet 00:00: mouth [place] 00 the Medical morning. Branch SERTraline 0 Yes [id number] 50mg Take 1 Univers (ZOLOFT) 50 8-09 tablet by ity of mg tablet 00:00: mouth [place] 00 the Medical morning. Branch SERTraline Yes [id number] 50mg Take 1 Univers (ZOLOFT) 50 8-09 tablet by ity of mg tablet 00:00: mouth [place] 00 the Medical morning. Branch SERTraline Yes [id number] 50mg Take 1 Univers (ZOLOFT) 50 8-09 tablet by ity of mg tablet 00:00: [place] 00 the Medical morning. Branch ALBUTEROL 0 Yes [id number] TAKE 2 U nivers 90 7-19 PUFFS BY ity of mcg/actuati 00:00: MOUTH [place] on inhaler 00 EVERY 6 Medica l HOURS Branch NEEDED FOR WHEEZE OR FOR SHORTNESS OF BREATH ALBUTEROL 0 Yes [id number] TAKE 2 U nivers 90 7-19 PUFFS BY ity of mcg/actuati 00:00: MOUTH [place] on inhaler 00 EVERY 6 Medica l HOURS Branch NEEDED FOR WHEEZE OR FOR SHORTNESS OF BREATH ALBUTEROL 0 Yes [id number] TAKE 2 U nivers 90 7-19 PUFFS BY ity of mcg/actuati 00:00: MOUTH [place] on inhaler 00 EVERY 6 Medica l HOURS Branch NEEDED FOR WHEEZE OR FOR SHORTNESS OF BREATH ALBUTEROL 2021-0 Yes [id number] TAKE 2 U nivers 90 7-19 PUFFS BY ity of mcg/actuati 00:00: MOUTH [place] on inhaler 00 EVERY 6 Medica l HOURS Branch NEEDED FOR WHEEZE OR FOR SHORTNESS OF BREATH ALBUTEROL 2021-0 Yes [id number] TAKE 2 U nivers 90 7-19 PUFFS BY ity of mcg/actuati 00:00: MOUTH [place] on inhaler 00 EVERY 6 Medica l HOURS Branch NEEDED FOR WHEEZE OR FOR SHORTNESS OF BREATH ALBUTEROL 2021-0 Yes [id number] TAKE 2 U nivers 90 7-19 PUFFS BY ity of mcg/actuati 00:00: MOUTH [place] on inhaler 00 EVERY 6 Medica l HOURS Branch NEEDED FOR WHEEZE OR FOR SHORTNESS OF BREATH ALBUTEROL 2021-0 Yes [id number] TAKE 2 U nivers 90 7-19 PUFFS BY ity of mcg/actuati 00:00: MOUTH [place] on inhaler 00 EVERY 6 Medica l HOURS Branch NEEDED FOR WHEEZE OR FOR SHORTNESS OF BREATH ALBUTEROL 2021-0 Yes [id number] TAKE 2 U nivers 90 7-19 PUFFS BY ity of mcg/actuati 00:00: MOUTH [place] on inhaler 00 EVERY 6 Medica l HOURS Branch NEEDED FOR WHEEZE OR FOR SHORTNESS OF BREATH ALBUTEROL 2021-0 Yes [id number] TAKE 2 U nivers 90 7-19 PUFFS BY ity of mcg/actuati 00:00: MOUTH [place] on inhaler 00 EVERY 6 Medica l HOURS Branch NEEDED FOR WHEEZE OR FOR SHORTNESS OF BREATH ALBUTEROL 2021-0 Yes [id number] TAKE 2 U nivers 90 7-19 PUFFS BY ity of mcg/actuati 00:00: MOUTH [place] on inhaler 00 EVERY 6 Medica l HOURS Branch NEEDED FOR WHEEZE OR FOR SHORTNESS OF BREATH ALBUTEROL 2021-0 Yes [id number] TAKE 2 U nivers 90 7-19 PUFFS BY ity of mcg/actuati 00:00: MOUTH [place] on inhaler 00 EVERY 6 Medica l HOURS Branch NEEDED FOR WHEEZE OR FOR SHORTNESS OF BREATH ALBUTEROL 2021-0 Yes [id number] TAKE 2 U nivers 90 7-19 PUFFS BY ity of mcg/actuati 00:00: MOUTH [place] on inhaler 00 EVERY 6 Medica l HOURS Branch NEEDED FOR WHEEZE OR FOR SHORTNESS OF BREATH ALBUTEROL 2021-0 Yes [id number] TAKE 2 U nivers 90 7-19 PUFFS BY ity of mcg/actuati 00:00: MOUTH [place] on inhaler 00 EVERY 6 Medica l HOURS Branch NEEDED FOR WHEEZE OR FOR SHORTNESS OF BREATH ALBUTEROL 0 Yes [id number] TAKE 2 U nivers 90 7-19 PUFFS BY ity of mcg/actuati 00:00: MOUTH [place] on inhaler 00 EVERY 6 Medica l HOURS Branch NEEDED FOR WHEEZE OR FOR SHORTNESS OF BREATH ALBUTEROL 0 Yes [id number] TAKE 2 U nivers 90 7-19 PUFFS BY ity of mcg/actuati 00:00: MOUTH [place] on inhaler 00 EVERY 6 Medica l HOURS Branch NEEDED FOR WHEEZE OR FOR SHORTNESS OF BREATH ALBUTEROL 0 Yes [id number] TAKE 2 U nivers 90 7-19 PUFFS BY ity of mcg/actuati 00:00: MOUTH [place] on inhaler 00 EVERY 6 Medica l HOURS Branch NEEDED FOR WHEEZE OR FOR SHORTNESS OF BREATH ALBUTEROL 0 Yes [id number] TAKE 2 U nivers 90 7-19 PUFFS BY ity of mcg/actuati 00:00: MOUTH [place] on inhaler 00 EVERY 6 Medica l HOURS Branch NEEDED FOR WHEEZE OR FOR SHORTNESS OF BREATH ALBUTEROL 0 Yes [id number] TAKE 2 U nivers 90 7-19 PUFFS BY ity of mcg/actuati 00:00: MOUTH [place] on inhaler 00 EVERY 6 Medica l HOURS Branch NEEDED FOR WHEEZE OR FOR SHORTNESS OF BREATH ALBUTEROL 0 Yes [id number] TAKE 2 U nivers 90 7-19 PUFFS BY ity of mcg/actuati 00:00: MOUTH [place] on inhaler 00 EVERY 6 Medica l HOURS Branch NEEDED FOR WHEEZE OR FOR SHORTNESS OF BREATH Immunizations Ordered Filled Immunization Date Status Comments [facility] e Immunization Name Name Rho (d) Immune 2022-05-16 Completed University of Globulin 00:00:00 [facility] Rho (d) Immune 2022-05-16 Completed University of Globulin 00:00:00 [facility] Rho (d) Immune 2022-05-16 Completed University of Globulin 00:00:00 [facility] Rho (d) Immune 2022-05-16 Completed University of Globulin 00:00:00 [facility] Rho (d) Immune 2022-05-16 Completed University of Globulin 00:00:00 [place] [facility] Rho (d) Immune 2022-05-16 Completed University of Globulin 00:00:00 [facility] Branch Rho (d) Immune 2022-05-16 Completed University of Globulin 00:00:00 [facility] Rho (d) Immune 2022-05-16 Completed University of Globulin 00:00:00 [facility] Rho (d) Immune 2022-05-16 Completed University of Globulin 00:00:00 [facility] Rho (d) Immune 2022-05-16 Completed University of Globulin 00:00:00 [facility] Rho (d) Immune 2022-05-16 Completed University of Globulin 00:00:00 [facility] Rho (d) Immune 2022-05-16 Completed University of Globulin 00:00:00 [facility] Rho (d) Immune 2022-05-16 Completed University of Globulin 00:00:00 [facility] Rho (d) Immune 2022-05-16 Completed University of Globulin 00:00:00 [facility] Rho (d) Immune 2022-05-16 Completed University of Globulin 00:00:00 [facility] Rho (d) Immune 2022-05-16 Completed University of Globulin 00:00:00 [facility] Rho (d) Immune 2022-05-16 Completed University of Globulin 00:00:00 [facility] Rho (d) Immune 2022-05-16 Completed University of Globulin 00:00:00 [facility] Rho (d) Immune 2022-05-16 Completed University of Globulin 00:00:00 [facility] Rho (d) Immune 2022-04-10 Completed University of Globulin 00:00:00 [facility] Rho (d) Immune 2022-04-10 Completed University of Globulin 00:00:00 [facility] Rho (d) Immune 2022-04-10 Completed University of Globulin 00:00:00 [facility] Rho (d) Immune 2022-04-10 Completed University of Globulin 00:00:00 [facility] Rho (d) Immune 2022-04-10 Completed University of Globulin 00:00:00 [facility] Rho (d) Immune 2022-04-10 Completed University of Globulin 00:00:00 [facility] Rho (d) Immune 2022-04-10 Completed University of Globulin 00:00:00 [facility] Rho (d) Immune 2022-04-10 Completed University of Globulin 00:00:00 [facility] Rho (d) Immune 2022-04-10 Completed University of Globulin 00:00:00 [facility] Rho (d) Immune 2022-04-10 Completed University of Globulin 00:00:00 [facility] Rho (d) Immune 2022-04-10 Completed University of Globulin 00:00:00 [facility] Rho (d) Immune 2022-04-10 Completed University of Globulin 00:00:00 [facility] Rho (d) Immune 2022-04-10 Completed University of Globulin 00:00:00 [facility] Rho (d) Immune 2022-04-10 Completed University of Globulin 00:00:00 [facility] Rho (d) Immune 2022-04-10 Completed University of Globulin 00:00:00 [facility] Rho (d) Immune 2022-04-10 Completed [facility] of Globulin 00:00:00 [place] [facility] [facility] Rho (d) Immune 2022-04-10 Completed [facility] 00:00:00 [facility] Rho (d) Immune 2022-04-10 Completed [facility] 00:00:00 [facility] Rho (d) Immune 2022-04-10 Completed [facility] 00:00:00 [facility] Rho (d) Immune 2021-12-26 Completed [facility] 00:00:00 [facility] Rho (d) Immune 2021-12-26 Completed [facility] 00:00:00 [facility] Rho (d) Immune 2021-12-26 Completed [facility] 00:00:00 [facility] Rho (d) Immune 2021-12-26 Completed [facility] 00:00:00 [facility] Rho (d) Immune 2021-12-26 Completed [facility] 00:00:00 [facility] Rho (d) Immune 2021-12-26 Completed [facility] 00:00:00 [facility] Rho (d) Immune 2021-12-26 Completed [facility] 00:00:00 [facility] Rho (d) Immune 2021-12-26 Completed [facility] 00:00:00 [facility] Rho (d) Immune 2021-12-26 Completed [facility] 00:00:00 [facility] Rho (d) Immune 2021-12-26 Completed [facility] 00:00:00 [facility] Rho (d) Immune 2021-12-26 Completed [facility] 00:00:00 [facility] Rho (d) Immune 2021-12-26 Completed [facility] Gl[facility] 00:00:00 [facility] Rho (d) Immune 2021-12-26 Completed [facility] 00:00:00 [facility] Rho (d) Immune 2021-12-26 Completed [facility] 00:00:00 [facility] Rho (d) Immune 2021-12-26 Completed [facility] 00:00:00 [facility] Rho (d) Immune 2021-12-26 Completed [facility] 00:00:00 [facility] Rho (d) Immune 2021-12-26 Completed [facility] 00:00:00 [facility] Rho (d) Immune 2021-12-26 Completed [facility] 00:00:00 [facility] Rho (d) Immune 2021-12-26 Completed [facility] 00:00:00 [facility] Vital Signs Vital Name Observation Time Observation Value Comments Source Systolic blood 2023-01-23 19:10:00 118 mm[Hg] [facility] Diastolic blood 2023-01-23 19:10:00 71 mm[Hg] Unive rsity of [facility] Heart rate 2023-01-23 19:09:00 79 /min [facility] Body temperature 2023-01-23 19:09:00 36.78 [facility] weight 2023-01-23 19:09:00 75.206 kg [facility] BMI 2023-01-23 19:09:00 25.97 kg/m2 [facility] Systolic blood 2023-01-09 16:41:00 121 mm[Hg] Univer [facility] of [facility] Diastolic blood 2023-01-09 16:41:00 80 mm[Hg] Unive rsity of [facility] Heart rate 2023-01-09 16:41:00 66 /min [facility] Respiratory rate 2023-01-09 16:41:00 13 /min [facility] Oxygen saturation in 2023-01-09 16:41:00 96 /min [facility] Arterial blood by [facility] Pulse oximetry Branch Body temperature 2023-01-09 15:55:00 36.61 Nereyda [facility] Body height 2023-01-09 13:15:00 170.2 cm [facility] Body weight 2023-01-09 13:15:00 72.122 kg [facility] BMI 2023-01-09 13:15:00 24.90 kg/m2 [facility] Body height 2023-01-09 13:15:00 170.2 cm [facility] Body weight 2023-01-09 13:15:00 72.122 kg [facility] BMI 2023-01-09 13:15:00 24.90 kg/m2 Universi ty [facility] Systolic blood 2023-01-09 12:47:00 125 mm[Hg] Univer sity of pressure [facility] Diastolic blood 2023-01-09 12:47:00 81 mm[Hg] Unive rsity of pressure [facility] Heart rate 2023-01-09 12:47:00 65 /min Universi ty of [facility] Body temperature 2023-01-09 12:47:00 36.28 Nereyda Univ ersity of [facility] Respiratory rate 2023-01-09 12:47:00 16 /min [facility] Oxygen saturation in 2023-01-09 12:47:00 99 /min [facility] Arterial blood by [facility] Pulse oximetry Branch Systolic blood 2022-12-27 19:55:00 117 mm[Hg] Univer sity of pressure [facility] Diastolic blood 2022-12-27 19:55:00 79 mm[Hg] Unive rsity of pressure [facility] Heart rate 2022-12-27 19:55:00 98 /min Universi [facility] Body temperature 2022-12-27 19:55:00 37.61 Nereyda Univ ersity of [facility] Respiratory rate 2022-12-27 19:55:00 18 /min Univ ersity of [facility] Body height 2022-12-27 19:55:00 170.2 cm [facility] Body weight 2022-12-27 19:55:00 72.213 kg [facility] BMI 2022-12-27 19:55:00 24.93 kg/m2 [facility] Systolic blood 2022-11-27 19:06:00 124 mm[Hg] Univer [facility]ity of [facility] Diastolic blood 2022-11-27 19:06:00 82 mm[Hg] Unive rsity of [facility] Heart rate 2022-11-27 19:06:00 88 /min [facility] Body temperature 2022-11-27 19:06:00 36.89 Nereyda Univ [facility] Body height 2022-11-27 19:06:00 170.2 cm [facility] Body weight 2022-11-27 19:06:00 72.031 kg [facility] BMI 2022-11-27 19:06:00 24.87 kg/m2 [facility] Systolic blood 2022-08-21 19:11:00 126 mm[Hg] Univer [facility]ity of [facility] Diastolic blood 2022-08-21 19:11:00 80 mm[Hg] Unive rsity of [facility] Heart rate 2022-08-21 19:11:00 52 /min [facility] Body temperature 2022-08-21 19:11:00 36.72 Nereyda Univ [facility] Body height 2022-08-21 19:11:00 170.2 cm [facility] Body weight 2022-08-21 19:11:00 67.042 kg [facility] BMI 2022-08-21 19:11:00 23.15 kg/m2 [facility] Systolic blood 2022-07-20 13:43:00 137 mm[Hg] Univer [facility]ity [facility] Diastolic blood 2022-07-20 13:43:00 82 mm[Hg] Unive rsity of [facility] Heart rate 2022-07-20 13:43:00 69 /min [facility] Body temperature 2022-07-20 13:43:00 37.06 Nereyda Univ [facility] Respiratory rate 2022-07-20 13:43:00 18 /min Univ [facility] Body height 2022-07-20 13:43:00 170.2 cm [facility] Body weight 2022-07-20 13:43:00 64.864 kg [facility] BMI 2022-07-20 13:43:00 22.40 kg/m2 [facility] Procedures Procedure Date / Time Performing Clinician Source Performed [facility] PATIENT FINANCIAL 2023-01-23 18:45:22 Doctor Unassigned, No [facility] POLICY [facility] PREPARE PACKED RBC 2023-01-09 20:11:34 Terrance [facility] PREPARE PACKED RBC 2023-01-09 17:24:17 Terrance [facility] CBC WITH DIFF 2023-01-09 14:59:00 [facility] CBC WITH DIFF 2023-01-09 14:59:00 Carlos [facility] HB ABO GROUPING 2023-01-09 14:58:00 [facility] HB ABO GROUPING 2023-01-09 14:58:00 Terrance [facility] LAPAROSCOPIC TUBAL 2023-01-09 14:17:00 Terrance [facility] LIGATION [facility] POCT TEST 2023-01-09 12:40:00 Herberth Morales [facility] POCT TEST 2023-01-09 12:40:00 Herberth Morales [facility] DAY SURGERY - ADC 2023-01-09 06:01:00 Doctor Unassigned, No [facility] CONSENT/REFUSAL FOR 2022-12-27 19:29:23 Doctor Unassigned, No [facility] DIAGNOSIS AND TREATMENT [facility] ASSIGNMENT OF BENEFITS 2022-12-27 19:29:10 Doctor Unassigned, No [facility] STERILIZATION CONSENT 2022-11-27 06:01:00 Doctor Unassigned, No [facility] FORM [facility] STERILIZATION CONSENT 2022-11-27 06:01:00 Doctor Unassigned, No [facility] FORM [facility] CONSENT FOR 2022-08-21 05:01:00 Doctor Unassigned, No [facility] CONTRACEPTION [facility] POCT TEST 2022-08-21 00:00:00 CarlosNuzhat Micah [facility] POCT TEST 2022-07-20 13:45:00 TerranceAjileana Obrien [facility] FUNERAL PRE NEED CONSULTANT CLINIC ULTRASOUND 2022-07-20 05:01:00 Doctor Unassbritney, [place] [facility] Encounters Start End Encounter Admission Attending Care Care Encounter Source Date/Time Date/Time Type Type Clinicians Facility Department ID 2022-07-03 Outpatient R NUZHAT CARLOS [facility] PRINCIPAL ADMINISTRATIVE CLERK [id number] Univers 10:20:24 ity [facility] 2023-07-26 2023-07-26 Outpatient R NUZHAT CARLOS [facility] [id number] Univers 08:30:00 08:30:00 ity [facility] 2023-01-23 2023-01-23 Office Terrance [facility] [id number] Univers 13:15:00 13:30:55 Visit Micah BOWENS 350.1.13.10 i ty [facility] [place].7.[place] [id number] Co dical [address] 2023-01-23 2023-01-23 Outpatient R NUZHAT CARLOS [facility] [id number] Univers 13:15:00 13:30:55 ity [facility] 2023-01-23 2023-01-23 Orders Doctor DAMICO 1.2.840.114 [id number] Univers 00:00:00 00:00:00 Only Unassigned, ORLIN 350.1.13.10 [facility] 4.2.7.2.686 [place] as [id number] [address] 2023-01-09 2023-01-09 Outpatient R NUZHAT CARLOS [facility] PRINCIPAL ADMINISTRATIVE CLERK [id number] Univers 06:30:00 10:54:00 ity of [facility] 2023-01-09 2023-01-09 [facility] Nuzhat Carlos [facility] 1.2.840.114 [id number] Univers 06:30:00 10:54:00 Encounter Micah BOWENS 350.1.13.10 ity [facility] 4.2.7.2.[place] [id number] [facility] [address] 2023-01-09 2023-01-09 [facility] 1.2.268.643 [id number] Univers 07:45:00 09:45:00 Cam [place] 350.1.13.10 i ty of [place].7.2.[place] [id number] [facility] 0[address] Branch 2023-01-09 2023-01-09 Orders Doctor MOOKIE 1.2.840.114 [id number] Univers 00:00:00 00:00:00 Only Unassigned, ORLIN 350.1.13.10 ity of [place] [facility] 4.2.7.2.686 [place] [id number] [address] 2022-12-27 2022-12-27 Outpatient O TERRANCE [facility] [id number] Univers 13:30:00 14:45:34 ity [facility] 2022-12-27 2022-12-27 [facility] 1.2.045.438 [id number] Univers 13:30:00 14:45:34 Visit Cam [place] 350.1.13.10 i ty of [place] 4.2.7.2.[place] [id number] Co dical NAL 134 [facility] 2022-12-27 2022-12-27 Orders Doctor MOOKIE 1.2.840.114 [id number] Univers 00:00:00 00:00:00 Only Unassigned, ORLIN 350.1.13.10 ity of [place] [facility] 4.2.7.2.686 [place] [phone] [address] 2022-12-26 2022-12-26 [facility] [id number] Univers 14:30:00 14:30:00 ity [facility] 2022-11-27 2022-11-27 [facility] 1.2.090.042 [id number] Univers 13:30:00 13:30:00 Visit Cam [place] 350.1.13.10 i ty [place] 4.2.7.2.686 [place] [id number] [address] 2022-11-27 2022-11-27 Outpatient R TERRANCE NUZHAT [facility] [id number] Univers 13:30:00 13:26:39 ity [facility] 2022-11-27 2022-11-27 Prep For Nuzhat Carlos [facility] 1.2.840.114 [id number] Univers 00:00:00 00:00:00 Surgery Cam [place] 350.1.13.10 i ty [place] 4.2.7.2.[place] [id number] [address] 2022-08-24 2022-08-24 Outpatient R [facility] [id number] Univers 13:00:00 13:00:00 ity of [facility] 2022-08-21 2022-08-21 Outpatient R TERRANCE [facility] [id number] Univers 14:00:00 14:39:16 ity [facility] 2022-08-21 2022-08-21 Office Nuzhat Carlos [facility] 1.2.887.544 [id number] Univers 14:00:00 14:39:16 Visit Cam KWAN 350.1.13.10 i ty [place] 4.2.7.2.686 [place] [id number] [address] 2022-08-21 2022-08-21 Outpatient R [facility] [id number] Univers 08:30:00 08:30:00 ity of [facility] 2022-08-21 2022-08-21 Outpatient R NUZHAT CARLOS [facility] [id number] Univers 08:15:00 08:15:00 ity [facility] 2022-08-21 2022-08-21 Orders Doctor DAMICO 1.2.840.114 [id number] Univers 00:00:00 00:00:00 Only Unassigned, ORLIN 350.1.13.10 ity of [place] [facility] 4.2.7.2.686 [place] [id number] [address] 2022-08-01 2022-08-01 Outpatient R TERRANCE [facility] [id number] Univers 13:00:00 13:00:00 ity of [facility] 2022-07-21 2022-07-21 Refill Nuzhat Carlos [facility] [id number] Univers 00:00:00 00:00:00 Micah BOWENS 350.1.13.10 i ty [facility] 4.2.7.2.[place] [id number] [address] 2022-07-20 2022-07-20 Outpatient R NUZHAT CARLOS [facility] [id number] Univers 08:30:00 09:05:36 ity [facility] 2022-07-20 2022-07-20 Office Nuzhat Carlos [facility] 1.2.227.540 [id number] Univers 08:30:00 09:05:36 Visit Micah BOWENS 350.1.13.10 i ty [place] 4.2.7.2.686 [place] [id number] [address] 2022-07-20 2022-07-20 Orders Doctor MOOKIE 1.2.840.114 [id number] Univers 00:00:00 00:00:00 Only Unassigned, ORLIN 350.1.13.10 ity of [place] [facility] 4.2.7.2.686 [place] [id number] [address] 2022-07-17 2022-07-17 Outpatient R LIGIA [facility] [id number] Univers 14:45:00 15:06:36 BUDDY ity [facility] 2022-07-17 2022-07-17 Office Ligia [facility] 1.2.033.753 [id number] Univers 14:45:00 15:06:36 Visit Buddy BOWENS 350.1.13.10 i ty [facility] 4.2.7.2.[place] [id number] [address] 2022-07-17 2022-07-17 Telephone Ligia ORBRANDIE 1.2.840.114 [id number] Univers 00:00:00 00:00:00 Buddy BOWENS 350.1.13.10 i ty [place] 4.2.7.2.686 [place] [id number] Co dicsd NAL [address] [place] [address] 2022-07-11 2022-07-11 Telephone Nuzhat Carlos [facility] 1.2.840.114 [id number] Univers 00:00:00 00:00:00 Cam KWAN 350.1.13.10 i ty of [place] 4.2.7.2.686 [place] [id number] [address] 2022-06-27 2022-06-27 Office Nuzhat Carlos [facility] 1.2.569.109 [id number] Univers 13:30:00 14:10:31 Visit Micah BOWENS 350.1.13.10 i ty [facility] 4.2.7.2.[place] [id number] [address] 2022-06-27 2022-06-27 Outpatient R NUZHAT CARLOS [facility] [id number] Univers 13:30:00 14:10:31 ity of [facility] 2022-06-27 2022-06-27 Outpatient R TERRANCE [facility] [id number] Univers 13:30:00 13:30:00 ity of [facility] 2022-06-27 2022-06-27 [facility] 1.2.840.114 [id number] Univers 00:00:00 00:00:00 Surgery Micah BOWENS 350.1.13.10 i ty [place] 4.2.7.2.686 [place] [id number] [address] 2022-06-20 2022-06-20 Routine Ligia [facility] 1.2.672.854 [id number] Univers 11:00:00 11:15:00 Buddy BOWENS 350.1.13.10 ity of [facility] 4.2.7.2.[place] [id number] [address] 2022-06-20 2022-06-20 Outpatient R LIGIA [facility] [id number] Univers 11:00:00 11:00:00 BUDDY hi [facility] 2022-06-15 2022-06-15 Outpatient R LIGIA [facility] [id number] Univers 16:30:00 16:30:00 BUDDY hi [facility] 2022-05-15 2022-05-16 Inpatient P NUZHAT CARLOS [facility] MARIANN [id number] Univers 03:55:00 20:35:00 ity of [facility] 2022-05-15 2022-05-16 Hospital Nuzhat Carlos [facility] 1.2.840.114 [id number] Univers 03:55:00 20:35:00 Encounter Micah BOWENS 350.1.13.10 ity of [place] 4.2.7.2.686 [facility] [id number] [facility] [address] 2022-05-16 2022-05-16 Anesthesia Ben [facility] 1.2.840.114 [id number] Univers 20:03:32 20:03:32 Event Duong BOWENS 350.1.13.10 i ty of [place] 4.2.7.2.686 [facility] W[facility] [id number] [facility] [address] 2022-05-16 2022-05-16 Outpatient R NUZHAT CARLOS [facility] [id number] Univers 13:15:00 13:15:00 ity of [facility] 2022-05-15 2022-05-15 Anesthesia Cassie Bajwa [facility] 1.2. 840.114 [id number] Univers 10:36:00 17:46:00 Event Mookie Eugene 350.1.13.10 ity of [place] 4.2.7.2.686 [facility] W[facility] [id number] [facility] [address] 2022-05-15 2022-05-15 Orders Doctor MOOKIE 1.2.840.114 [id number] Univers 00:00:00 00:00:00 Only Unassigned, ORLIN 350.1.13.10 ity of [place] [facility] 4.2.7.2.686 [place] [id number] [facility] [address] 2022-05-12 2022-05-12 Laboratory Only, Adc Test [facility] 1.2.840. 114 [id number] Univers 14:00:00 14:15:00 Only Nuzhat Carlos Micah BOWENS 350.1.13.10 ity [place].2.7.2.[place] [id number] [facility] [address] 2022-05-12 2022-05-12 Outpatient R NUZHAT CARLOS [facility] [id number] Univers 14:00:00 14:00:00 ity of [facility] 2022-05-12 2022-05-12 Ancillary Sonal Kennedy [facility] 1.2.84 0.114 [id number] Univers 13:00:00 13:45:00 Visit Jacques Barak Betsy BOW[place] 350.1.13.10 ity [facility] 4.2.7.2.686 [place] [facility] [id number] Co dical NAL 179 [facility] 2022-05-12 2022-05-12 Outpatient R SAWYER [facility] [id number] Univers 13:00:00 13:00:00 BARAK cherieandreas [facility] 2022-05-12 2022-05-12 [facility] [id number] Univers 13:00:00 13:00:00 BARAK [facility] 2022-05-12 2022-05-12 Orders Doctor DAMICO 1.2.840.114 [id number] Univers 00:00:00 00:00:00 Only Unassigned, ORLIN 350.1.13.10 [facility] 4.2.7.2.686 [place] as [id number] [facility] [address] 2022-05-12 2022-05-12 [facility]arine [facility] 1.2.672.280 [id number] Univers 00:00:00 00:00:00 Buddy BOWENS 350.1.13.10 i ty [facility] 4.2.7.2.[place] [facility] [id number] Co dical NAL 134 [facility] 2022-05-10 2022-05-10 [facility] [id number] Univers 13:00:00 13:43:15 BUDDY hi [facility] 2022-05-10 2022-05-10 Repairer Controller Tester 1, Love[employer] Room [facility] 1.2. 840.114 [id number] Univers 13:00:00 13:43:15 Visit TerranceNuzhat Micah FUNERAL PRE NEED CONSULTANT 350.1.13.10 ity of Buddy Strong [facility] 4.2.7.2.686 [place] MATERNAL [id number] [facility] CHILD [address] [place] [address] 2022-05-10 2022-05-10 Routine Buddy Strong [facility] 1.2.840.11 [id number] Univers 09:45:00 10:21:14 Terrance Nuzhat BOW[place] 350.1.13.10 ity of [place] 4.2.7.2.[place] [id number] Co dical NAL [address] [place] [address] 2022-05-10 2022-05-10 Outpatient R AJ CARLOSEN [facility] [id number] Univers 09:45:00 09:45:00 ity of [facility] 2022-05-09 2022-05-09 Telephone Nuzhat Carlos [facility] 1.2.840.114 [id number] Univers 00:00:00 00:00:00 Micah BOWENS 350.1.13.10 i ty of [place] 4.2.7.2.[place] [id number] Co dical NAL [address] [place] [address] 2022-05-08 2022-05-08 Telephone Nuzhat Carlos [facility] 1.2.840.114 [id number] Univers 00:00:00 00:00:00 Micah BOWENS 350.1.13.10 i ty of [place] 4.2.7.2.[place] [id number] Co dical NAL [address] [place] [address] 2022-05-05 2022-05-05 Orders Doctor MOOKIE 1.2.840.114 [id number] Univers 00:00:00 00:00:00 Only Unassigned, ORLIN 350.1.13.10 ity of [place] [facility] 4.2.7.2.686 [place] as [id number] [address] 2022-05-03 2022-05-03 Repairer Controller Tester 2, Adc Lab [facility] 1.2.840.114 [id number] Univers 11:30:00 11:45:00 Visit Buddy Strong 350.1.13.10 ity of [place] 4.2.7.2.[place] [id number] Co dical NAL 353 [facility] 2022-05-03 2022-05-03 Outpatient R LIGIA [facility] [id number] Univers 11:00:00 11:26:32 BUDDY andreas [facility] 2022-05-03 2022-05-03 [facility] 1.2.338.967 [id number] Univers 11:00:00 11:26:32 Buddy BOWENS 350.1.13.10 ity of [place] 4.2.7.2.[place] [id number] Co dical NAL 134 [facility] 2022-04-20 2022-04-20 Nuzhat Winslow [facility] 1.2.888.627 [id number] Univers 00:00:00 00:00:00 Cam KWAN 350.1.13.10 i ty of [place] 4.2.7.2.[place] [id number] Co dical NAL [address] [place] [address] 2022-04-18 2022-04-18 [facility] 1.2.668.444 [id number] Univers 15:45:00 16:00:00 Buddy BOWENS 350.1.13.10 ity of [place] 4.2.7.2.686 [place] [id number] Co dical NAL [address] [place] [address] 2022-04-18 2022-04-18 Outpatient R LIGIA [facility] [id number] Univers 15:45:00 15:45:00 BUDDY andreas [facility] 2022-04-18 2022-04-18 Outpatient R LIGIA [facility] [id number] Univers 15:45:00 [facility]:45[facility] 2022-04-18 Orders Doctor DAMICO 1.2.840.114 [id number] Univers 00:00:00 00:00:00 Only Unassigned, ORLIN 350.1.13.10 ity [facility] [place] [facility] 4.2.7.2.686 [place] as [id number] [facility] [address] 2022-04-13 2022-04-13 Outpatient R SAWYER [facility] [id number] Univers 15:15:00 15:15:00 BARAK ity [facility] 2022-04-13 2022-04-13 Telephone Gordon [facility] 1.2.961.393 [id number] Univers 00:00:00 00:00:00 [facility] 350.1.13.10 it y of [place] 4.2.7.2.686 [place] as RAVINDRA?BLEA [id number] [facility] [address] [facility] 2022-04-12 2022-04-12 Outpatient R GORDON [facility] [id number] Univers 12:00:00 12:16:27 FAVIOLA ity [facility] 2022-04-12 2022-04-12 Urgent Gordon Faviola [facility] 1.2.840.114 [id number] Univers 12:00:00 12:16:27 [facility] [id number] ity of [place] 4.2.7.2.686 [place] as RAVINDRA?BLEA [phone] [facility] [address] [facility] 2022-04-12 2022-04-12 Telephone Nuzhat Carlos [facility] .2.840.114 [id number] Univers 00:00:00 00:00:00 Cam [place] 350.1.13.10 i ty of [place] [phone] [facility] 134 [facility] 2022-04-12 2022-04-12 Letter Juanita Vivas 1.2.840.114 [id number] Univers 00:00:00 00:00:00 (Out) ORLIN 350.1.13.10 it y of HOSPITAL 4.2.7.2.686 [place] as [phone] [facility] [address] [place] 2022-04-10 2022-04-10 Nurse Nurse, [facility] 1.2.840.114 [id number] Univers 10:00:00 10:52:44 Visit Nuzhat Carlos 350.1.13.10 ity [facility] [place] [phone] Co dical NAL 134 [facility] 2022-04-10 2022-04-10 Repairer Controller Tester 2, [facility] Lab [facility] 1.2.840.114 [id number] Univers 08:30:00 08:45:00 Visit Nuzhat Carlos 350.1.13.10 ity of [facility] [place] [phone] Co dical NAL 353 [facility] 2022-04-10 2022-04-10 Outpatient R NUZHAT CARLOS [facility] [id number] Univers 08:30:00 08:30:00 ity of [facility] 2022-04-09 2022-04-09 Nurse MOOKIE Pham 1.2.840.114 [id number] Univers 00:00:00 00:00:00 Triage Aneatrice ORLIN 350.1.13.10 ity of HOSPITAL 4.2.7.2.686 [place] as [phone] [address] 2022-04-03 2022-04-03 Outpatient R NUZHAT CARLOS [facility] [id number] Univers 11:15:00 11:36:39 ity of [facility] 2022-04-03 2022-04-03 Routine Terrance [facility] 1.2.634.476 [id number] Univers 11:15:00 11:36:39 Cam YESIREBECA 350.1.13.10 ity of [facility] 4.[place] [phone] Co dical NAL 134 [facility] 2022-04-03 2022-04-03 Orders Doctor DAMICO 1.2.840.114 [id number] Univers 00:00:00 00:00:00 Only Unassigned, ORLIN 350.1.13.10 ity of [place] [facility] 4.2.7.2.686 [place] as [phone] [address] 2022-03-27 2022-03-27 Repairer Controller Tester Ultrasound, [facility] 1.2 .840.114 [id number] Univers 11:00:00 11:45:00 Visit Cici De Leon [facility] 350.1. 13.10 ity of [facility] 4.2.7.2.686 [place] MATERNAL [phone] Med ical & CHILD [address] [place] [address] 2022-03-27 2022-03-27 Outpatient R BELTRAN [facility] [id number] Univers 11:00:00 11:00:00 ISA it y of SCICI [facility] 2022-02-27 2022-02-27 Outpatient R TERRANCE NUZHAT [facility] [id number] Univers 11:15:00 11:15:00 ity of [facility] 2022-01-30 2022-01-30 Routine Ligia [facility] 1.2.821.558 [id number] Univers 16:30:00 16:30:00 Buddy BOW[place] 350.1.13.10 ity of Visit [place] [phone] [address] 2022-01-30 2022-01-30 Outpatient R LIGIA [facility] [id number] Univers 16:30:00 14:47:48 BUDDY ity [facility] 2022-01-27 2022-01-27 Telephone Nuzhat Carlos [facility] 1.2.840.114 [id number] Univers 00:00:00 00:00:00 Micah BOW[place] 350.1.13.10 i ty of [place] [phone] Co dic[address] 2022-01-25 2022-01-25 Outpatient ROWDY JAMIL [facility] [id number] Univers 13:45:00 16:17:41 ity of [facility] 2022-01-25 2022-01-25 Telemedici Lu Benitez [facility] 1. .840.114 [id number] Univers 13:45:00 16:17:41 ne Visit Rowdy Pate [facility] 350.1.13.10 ity of [facility] 4.2.7.2.[place] [id number] [address] 2022-01-24 2022-01-24 Repairer Controller Tester 3, [facility] Room [facility]ERSIT 1 .2.840.114 [id number] Univers 09:30:00 10:45:00 Visit Nuzhat Carlos [facility] 350.1.13.10 ity of Kenneth Hayes [facility] 4.2.7.2.686 [place] [phone] [address] 2022-01-24 2022-01-24 [facility] [id number] Univers 09:30:00 09:30:00 KENNETH [facility] 2022-01-23 2022-01-23 Outpatient R [facility] [id number] Univers 13:00:00 13:00:00 BUDDY [facility] 2022-01-05 2022-01-05 Outpatient [facility] [id number] Univers 10:00:00 10:54:51 TRUPTI [facility] 2022-01-05 2022-01-05 Repairer Controller Tester 1, [facility] 1.2. 840.114 [id number] Univers 10:00:00 10:54:51 Visit Trupti Black [facility] 350.1.13.10 ity of [facility] 4.2.7.2.686 [place] MATERNAL [phone] Med ical & CHILD [address] [place] [address] 2022-01-05 2022-01-05 Case Nuzhat Carlos [facility] 1.2.672.619 [id number] Univers 00:00:00 00:00:00 Management Micah BOWENS 350.1.13.10 ity of [place] [phone] Co dical [address] 2021-12-27 2021-12-27 Telephone Nuzhat Carlos [facility] 1.2.840.114 [id number] Univers 00:00:00 00:00:00 Cam [place] 350.1.13.10 i ty of [facility] 4.2.7.2.[place] [phone] Co dical NAL 134 [facility] 2021-12-26 2021-12-26 Nurse Nurse, [facility] 1.2.840.114 [id number] Univers 14:00:00 14:15:00 Visit Nuzhat Carlos Micah BOWENS 350.1.13.10 ity of [place] 4.2.[place].2.[place] [phone] Co dical NAL 134 [facility] 2021-12-26 2021-12-26 Outpatient R TERRANCE [facility] [id number] Univers 14:00:00 14:00:00 ity of [facility] 2021-12-26 2021-12-26 Repairer Controller Tester Anna, [facility] Lab Main [facility] 1.2.8 40.114 [id number] Univers 13:00:00 13:15:00 Visit Aj Carlosileana BOWENS 350.1.13.10 ity of [place] [phone] Co dicradha NAL 353 [facility] 2021-12-26 2021-12-26 Initial Terrance [facility] 1.2.951.183 [id number] Univers 10:00:00 12:38:13 Cam [place] 350.1.13.10 ity of Visit [place] [phone] Co dical NAL 134 [facility] 2021-12-26 2021-12-26 Outpatient R NUZHAT CARLOS [facility] [id number] Univers 10:00:00 12:38:13 ity of [facility] 2021-12-26 2021-12-26 Outpatient R TERRANCE [facility] [id number] Univers 10:00:00 12:38:13 ity [facility] 2021-12-26 2021-12-26 Orders Doctor DAMICO 1.2.840.114 [id number] Univers 00:00:00 00:00:00 Only Unassigned, ORLIN 350.1.13.10 ity of [facility] 4.2.7.2.686 [place] [phone] [address] 2021-12-01 2021-12-01 Outpatient R AD, [facility] [id number] Univers 14:00:00 14:08:34 BRYNN hi [facility] 2021-12-01 2021-12-01 Outpatient R AD, [facility] [id number] Univers 14:00:00 14:08:34 BRYNN andreas [facility] 2021-12-01 2021-12-01 Nurse Nurse, [facility] 1.2.840.114 [id number] Univers 14:00:00 14:08:34 Visit Brynn Swanson Betsy [place] 350.1.13.10 ity [facility] [place]2.[place].2.[place] [phone] [address] 2021-12-01 2021-12-01 Outpatient R [facility] [id number] Univers 14:00:00 14:00:00 BRYNN [facility] 2021-12-01 2021-12-01 Orders Doctor MOOKIE 1.2.840.114 [id number] Univers 00:00:00 00:00:00 Only Unassigned, ORLIN 350.1.13.10 ity [facility] 4.2.7.2.686 [place] [phone] [address] 2021-11-17 2021-11-17 Outpatient R [facility] [id number] Univers 12:45:00 12:45:00 ity [facility] 2021-11-15 2021-11-15 [facility] [id number] Univers 17:57:00 22:41:00 [facility] [place] 2021-11-15 2021-11-15 [facility] [id number] Univers 17:57:00 22:41:00 [facility] [place] 2021-11-15 2021-11-15 Emergency Laly [facility] 1.2.886.899 [id number] Univers 17:57:00 22:41:00 Silverio S [place] 350.1.13.10 i ty of [place].2.[place] [phone] [facility] [address] [place] 2021-11-15 2021-11-15 Orders Doctor MOOKIE 1.2.840.114 [id number] Univers 00:00:00 00:00:00 Only Unassigned, ORLIN 350.1.13.10 ity of [place] [facility] 4.2.7.2.686 [place] [phone] [facility] [address] [place] 2021-11-14 2021-11-14 Telephone Pcp, [facility] 1.2.958.933 [id number] Univers 00:00:00 00:00:00 Patient FUNERAL PRE NEED CONSULTANT 350.1.13.10 it y of [facility] 4.2.7.2.686 [place] A MATERNAL [phone] Med ical & CHILD 107 [facility] 2021-11-10 2021-11-10 [facility] [id number] Univers 14:30:00 14:30:00 [facility] 2020-07-08 2020-07-08 Urgent Pob1, Acute Care [facility] 1. 2.840.114 [id number] Univers 15:42:00 16:23:36 [facility] 350.1.13.10 ity of [place] 4.2.7.2.686 [place] as Professio [phone] Co dical [address] Office [facility] 2020-07-08 2020-07-08 Urgent Pob1, Acute [facility] 1.2.840.114 [id number] 15:42:00 16:23:36 [facility] 350.1.13.10 [place] 4.2.7.2.686 Professio [id number] [place] [address] Office [facility] 2020-07-08 2020-07-08 Outpatient R [facility] [id number] Univers 16:00:00 16:00:00 ity [facility] 2020-07-08 2020-07-08 Letter Doctor MOOKIE 1.2.840.114 [id number] Univers 00:00:00 00:00:00 (Out) Unassigned, ORLIN 350.1.13.10 ity of [place] [facility] 4.2.7.2.686 [place] as [phone] [address] 2020-07-08 2020-07-08 Letter Doctor MOOKIE 1.2.840.114 [id number] 00:00:00 00:00:00 (Out) Unassigned, ORLIN 350.1.13.10 [place] [facility] 4.2.7.2.686 [id number] [id number] 2013-01-07 2013-01-07 Outpatient [facility] [id number] Univers 00:00:00 11:20:45 7 ity [facility] 2013-01-02 2013-01-02 Outpatient [facility] [id number] Univers 00:00:00 15:26:13 [facility] 2012-12-06 2012-12-06 Outpatient [facility] [id number] Univers 00:00:00 14:40:52 5 [facility] Results Test Description Test Time Test Comments Results Result Comments Source Type and Screen - ONCE Routine 2023-01-09 16:11:10 Test Item Value Reference Range Interpretation Comme nts ABO & RH (test code = 20) A Negative Pe rformed at [facility] Laboratory [facility] Blood [address] [place] [address] Free: [phone] A No. [id number] IAT (test code = 1185) Negative Perfo rmed at [facility] Laboratory [facility] Blood [address] [place], [place] [address]Toll Free: [phone] A No. [id number] [facility] Screen - ONCE [id number] 16:11:10 Test Item Value Reference Range Interpretation Comments ABO & RH (test code A Negative Performe d at [facility] = 20) Laboratory Serv [facility] Blood [address] [place] [address] Free: [phone] A No. [id number] IAT (test code = Negative Performed a t [facility] 1185) Laboratory Serv [facility] Blood Bank[address] [place], [place] [address]Toll Free: [phone] A No. [id number] [facility] [id number] 12:40:00 Test Item Value Reference Range Interpretation Comments POCT PREG (test code = 1605) Negative On board controls acceptable with C Yes Line (test code = 3574) POCT PREG LOT # (test code = 3575) POCT PREG TEST DATE (test code = 3576) [facility] [id number] 12:40:00 Test Item Value Reference Range Interpretation Comments POCT PREG (test code = 1605) Negative On board controls acceptable with C Yes Line (test code = 3574) POCT PREG LOT # (test code = 3575) POCT PREG TEST DATE (test code = 3576) [facility] [id number] 19:34:00 Test Item Value Reference Range Interpretation Comments POCT PREG (test code = 1605) Negative On board controls acceptable with C Yes Line (test code = 3574) POCT PREG LOT # (test code = 3575) POCT PREG TEST DATE (test code = 3576) [facility] [id number] 19:34:00 Test Item Value Reference Range Interpretation Comments POCT PREG (test code = 1605) Negative On board controls acceptable with C Yes Line (test code = 3574) POCT PREG LOT # (test code = 3575) POCT PREG TEST DATE (test code = 3576) [facility] [id number] 13:46:00 Test Item Value Reference Range Interpretation Comments POCT PREG (test code = 1605) Negative On board controls acceptable with C Yes Line (test code = 3574) POCT PREG LOT # (test code = 3575) POCT PREG TEST DATE (test code = 3576) [facility]
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
[2023-07-03] MEDS ORDERED: KETOROLAC 30 MG/ML INJ ONE (18:43)
[2023-07-03 20:15] VITALS: BP 159/112; TEMP 98.4; O2SAT 99
== END 2023-07-03 18:55 | disposition home or self-care (01) ==
LOC: ER 18:21
DX: T23.152A Burn of first degree of left palm, initial encounter (principal); T31.0 Burns involving less than 10% of body surface
CPT/HCPCS: 96372; 99284

== ENCOUNTER 2025-09-10 10:00 | Emergency (ER) | payer OTHER, SELFPAY ==
[2025-09-10] MEDS ORDERED: KETOROLAC 30 MG/ML INJ ONE (10:29)
[2025-09-10] MEDS ORDERED: NA CHLORIDE 0.9% 1,000 ML ONE (10:29)
[2025-09-10 10:48] LABS: Urine Crystals Unidentified Few /HPF (None Seen); Urine Culture Reflex Order REFLEXED; Urine Microscopic Reflex YN ORDER UMIC; Urine WBC Clump Few /HPF (None Seen)
[2025-09-10 10:48] LABS: Absolute Lymphocytes (CBC) 1.5 K/uL (0.7-4.9); Hematocrit 35.5 % (36.0-45.0); Hemoglobin 11.9 g/dL (12.0-15.0); MCH 31.9 pg (27.0-35.0); MCHC 33.6 g/dL (32.0-36.0); MCV 94.9 fL (80-100); MPV 8.6 fL (7.6-11.3); Nucleated RBC Absolute Count 0.0 (0-0); Nucleated Red Blood Cells % 0.1 % (0-0); RBC Red Blood Cell Count 3.74 M/uL (3.86-4.86); White Blood Count 6.50 thou/uL (4.3-10.9)
[2025-09-10 10:56] LABS: Anion Gap 12.1 mEq/L (5.0-15.0); BUN Blood Urea Nitrogen 11.0 mg/dL (7-18); Glucose Level 85.0 mg/dL (74-106); Potassium 4.1 mEq/L (3.5-5.1)
[2025-09-10] MEDS ORDERED: CEFTRIAXONE 1000 MG/VIAL ONE (11:01)
--- NOTE | 2025-09-10 11:11 | RAD REPORT ---
EXAMINATION: CT ABDOMEN AND PELVIS WITH CONTRAST CLINICAL INDICATION: Abd pain;Flank pain TECHNIQUE: CT abdomen and pelvis was performed, after the administration of IV contrast, as per [facility] protocol. Axial, sagittal and coronal reconstructions were obtained. One or more of the following dose reduction techniques were used: Automated exposure control, adjustment of the mA and k V according to patient size, and iterative reconstruction. Unless otherwise specified, incidental findings do not require dedicated imaging follow-up. COMPARISON: No prior exam. FINDINGS: LOWER CHEST: The visualized lung bases are clear. LIVER: Mild fatty liver is present. No focal lesion or biliary dilatation is seen. Grossly unremark able gallbladder. SPLEEN: Normal size. No focal lesion. PANCREAS: No mass, ductal dilation, or paulino-pancreatic fluid. ADRENALS: Normal; no mass. KIDNEYS: Normal size and contour. No hydronephrosis. GASTROINTESTINAL TRACT: No evidence of free air, significant intra-abdominal free fluid, bowel obstru ction or abscess. Small fat-containing umbilical hernia. APPENDIX: Appendix not visualized, but no inflammatory changes in region of appendix. LYMPH NODES: No lymphadenopathy. MUSCULOSKELETAL: Lower lumbar posterior disc bulging. ADDITIONAL FINDINGS: None. IMPRESSION: No acute or concerning abnormalities seen in the abdomen or pelvis.
--- NOTE | 2025-09-10 11:24 | ER ---
Nurse's Notes [facility] Name: Petra Aj Age: 40 yrs Sex: Female : 1985 Arrival Date: 09/10/2025 Time: 10:00 Bed 8 Private MD: Diagnosis: UTI/ Urinary tract infection, site not specified Presentation: 09/10 10:14 Chief complaint: Patient states: Burning with urination and lower back pain, dx with aa5 UTI and completed antibiotic tx. 10:14 Coronavirus screen: At this time, the client does not indicate any symptoms associated aa5 with coronavirus-19. Ebola Screen: Patient denies travel to an Ebola-affected area in the 21 days before illness onset. Initial Sepsis Screen: Does the patient meet any 2 criteria? No. Patient's initial sepsis screen is negative. Does the patient have a suspected source of infection? No. Patient's initial sepsis screen is negative. Risk Assessment: Do you want to hurt yourself or someone else? Patient reports no desire to harm self or others. Onset of symptoms was August 2025. 10:14 Acuity: ARNOLD 3 aa5 10:14 Method Of Arrival: Ambulatory aa5 Triage Assessment: 10:14 General: Appears uncomfortable, Behavior is calm, cooperative. Pain: Complains of pain aa5 in lumbar area, left low back and right low back Pain currently is 7 out of 10 on a pain scale. Quality of pain is described as aching, Is continuous. EENT: No signs and/or symptoms were reported regarding the EENT system. Neuro: Level of Consciousness is awake, alert, obeys commands, Oriented to person, place, time, situation. Cardiovascular: Patient's skin is warm and dry. Respiratory: Airway is patent Respiratory effort is even, unlabored, Respiratory pattern is regular, symmetrical. GI: No signs and/or symptoms were reported involving the gastrointestinal system. : Reports burning with urination, dysuria. Derm: Skin is pink, warm \T\ dry. Musculoskeletal: Range of motion: intact in all extremities. Historical: - Allergies: 10:24 PENICILLINS; aa5 - PMHx: 10:24 UTI; aa5 - PSHx: 10:24 Tubal ligation; aa5 - Immunization history:: Adult Immunizations unknown. - Infectious Disease History:: Denies. - Social history:: Smoking status: Patient reports the use of cigarette tobacco products. Screenin:36 [facility] ED Fall Risk Assessment (Adult) History of falling in the last 3 months, hb including since admission No falls in past 3 months (0 pts) Confusion or Disorientation No (0 pts) Intoxicated or Sedated No (0 pts) Impaired Gait No (0 pts) Mobility Assist Device Used No (0 pt) Altered Elimination No (0 pt) Score/Fall Risk Level 0 - 2 = Low Risk Oriented to surroundings, Maintained a safe environment, Educated pt \T\ family on fall prevention, incl call for assistance when getting out of bed. Abuse screen: Denies threats or abuse. Denies injuries from another. Nutritional screening: No deficits noted. Tuberculosis screening: No symptoms or risk factors identified. Assessment: 10:36 General: Appears in no apparent distress. Behavior is calm, cooperative. Pain: Pain hb currently is 6 out of 10 on a pain scale. Neuro: Level of Consciousness is awake, alert, obeys commands, Oriented to person, place, time, situation. Cardiovascular: Patient's skin is warm and dry. Respiratory: Respiratory effort is even, unlabored, Respiratory pattern is regular, symmetrical. GI: No signs and/or symptoms were reported involving the gastrointestinal system. : Reports dysuria, flank pain. EENT: No signs and/or symptoms were reported regarding the EENT system. Derm: Skin is pink, warm \T\ dry. Musculoskeletal: No signs and/or symptoms reported regarding the musculoskeletal system. 11:13 Reassessment: Patient is alert, oriented x 3, equal unlabored respirations, skin aa5 warm/dry/pink. General: Appears comfortable. 11:55 Reassessment: Patient is alert, oriented x 3, equal unlabored respirations, skin aa5 warm/dry/pink. Vital Signs: 10:14 BP 134 / 84; Pulse 82; Resp 18; Temp 98.4(O); Pulse Ox 100% on R/A; Weight 63.5 kg (R); aa5 Height 5 ft. 7 in. (R); 10:14 Body Mass Index 21.93 (63.50 kg, 170.18 cm) aa5 ED Course: 10:03 Patient arrived in ED. mr 10:03 Shayna Rosales PA-C is PHCP. sb4 10:03 Tacos Pathak MD is Attending Physician. sb4 10:14 Arm band placed on Patient placed in an exam room, on a stretcher. aa5 10:20 Patti Foster, CHENCHO is Primary Nurse. aa5 10:26 Triage completed. aa5 10:36 Patient has correct armband on for positive identification. Bed in low position. Call hb light in reach. Side rails up X 1. Provided Education on: tests, result times, call light. 10:36 Test, Urine Sent. hb 10:36 UA Rfx Hector Cult if indicated Sent. hb 10:36 Initial lab(s) drawn, by pa, sent to lab. Inserted saline lock: 20 gauge in right hb antecubital area, using aseptic technique. Blood collected. Flushed with 10 mL NS. 11:03 CT Abd/Pelvis - IV Contrast Only In Process Unspecified. EDMS 11:31 No provider procedures requiring assistance completed. aa5 11:55 IV discontinued, intact, bleeding controlled, No redness/swelling at site. Pressure aa5 dressing applied. Administered Medications: 10:36 Drug: NS 0.9% IV 1000 ml IV at 1 bolus Per protocol; to be given as a bolus over 60 hb minutes Route: IV; Rate: 1 bolus; Site: right antecubital; 11:55 Follow up: IV Status: Completed infusion; IV Intake: 1000ml aa5 10:36 Drug: Ketorolac IVP 15 mg IVP once Route: IVP; Site: right antecubital; hb 11:13 Follow up: Response: No adverse reaction aa5 11:13 Drug: Rocephin IV 1 grams IV at calculated rate once; Given slow IV push per pharmacy aa5 instructions Route: IV; Rate: calculated rate; Site: right antecubital; 11:15 Follow up: Response: No adverse reaction aa5 Medication: 10:36 VIS not applicable for this client. hb Intake: 11:55 IV: 1000ml; Total: 1000ml. aa5 Outcome: 11:23 Discharge ordered by . sb4 11:55 Discharged to home ambulatory, with significant other, aa5 11:55 Condition: stable 11:55 Discharge instructions given to patient, Instructed on discharge instructions, follow up and referral plans. medication usage, Demonstrated understanding of instructions, follow-up care, medications, Prescriptions given X 1, 11:57 Patient left the ED. aa5 Signatures: Dispatcher [employer] PADMINI Hawthorne, Alexa, Reg Reg mr Cristian, Patti, RN RN aa5 Roxana Hyde RN RN Shayna Fraser, ERIN [email or web address]
--- NOTE | 2025-09-10 11:24 | EDPHYS ---
Physician Documentation [facility] Name: Petra Aj Age: 40 yrs Sex: Female : 1985 Arrival Date: 09/10/2025 Time: 10:00 Bed 8 Private MD: ED Physician Tacos Pathak HPI: 09/10 10:45 This 40 yrs old Female presents to ER via Ambulatory with complaints of Urinary Problem.sb4 10:45 Patient reports UTI symptoms for about a week now. States that she had some leftover sb4 amoxicillin and was taking that which did improve but her symptoms came right back. States that she is having low back pain as well now. Denies any fever chills, nausea vomiting. Denies any history of kidney infection but does report history of UTIs. Historical: - Allergies: 10:24 PENICILLINS; aa5 - PMHx: 10:24 UTI; aa5 - PSHx: 10:24 Tubal ligation; aa5 - Immunization history:: Adult Immunizations unknown. - Infectious Disease History:: Denies. - Social history:: Smoking status: Patient reports the use of cigarette tobacco products. ROS: 10:45 Constitutional: Negative for fever, chills, and weight loss, sb4 10:45 : Positive for injury or acute deformity, urinary symptoms, flank pain, burning with urination, 10:45 All other systems are negative, Exam: 10:45 Constitutional: This is a well developed, well nourished patient who is awake, alert, sb4 and in no acute distress. Head/Face: Normocephalic, atraumatic. Eyes: Extra-ocular motions intact. Periorbital areas with no swelling, redness, or edema. ENT: Mucous membranes moist. Cardiovascular: Regular rate and rhythm with a normal S1 and S2. Respiratory: No increased work of breathing, no retractions or nasal flaring. Abdomen/GI: Soft, non-tender, no distension. Back: No spinal tenderness. No costovertebral tenderness. Full range of motion. Skin: Warm, dry with normal turgor. Normal color with no rashes, no lesions, and no evidence of cellulitis. Vital Signs: 10:14 BP 134 / 84; Pulse 82; Resp 18; Temp 98.4(O); Pulse Ox 100% on R/A; Weight 63.5 kg (R); aa5 Height 5 ft. 7 in. (R); 10:14 Body Mass Index 21.93 (63.50 kg, 170.18 cm) aa5 MDM: 10:05 Medical Screening Exam initiated sb4 10:45 Differential diagnosis: UTI, pyelo, dehydration, nephrolithiasis. sb4 11:25 Data reviewed: vital signs, nurses notes, lab test result(s), radiologic studies, and sb4 as a result, I will discharge patient. Counseling: I had a detailed discussion with the patient and/or guardian regarding the historical points, exam findings, and any diagnostic results supporting the discharge/admit diagnosis, lab results, radiology results, to return to the emergency department if symptoms worsen or persist or if there are any questions or concerns that arise at home. Special discussion: Based on the patient's Hx, exam, and Dx evaluation, there is no indication for emergent surgery or inpatient Tx. It is understood by the patient/guardian that if the Sx's persist or worsen they need to return immediately for re-evaluation. 09/10 10:16 Order name: UA Rfx Hector Cult if indicated; Complete Time: 10:54 sb4 09/10 10:16 Order name: Test, Urine; Complete Time: 10:44 sb4 09/10 10:27 Order name: CBC with Diff; Complete Time: 10:54 sb4 09/10 10:27 Order name: BMP; Complete Time: 10:57 sb4 09/10 10:56 Order name: Urine Culture EDDC 09/10 10:27 Order name: CT Abd/Pelvis - IV Contrast Only; Complete Time: 11:21 sb4 09/10 10:27 Order name: IV Start; Complete Time: 10:36 sb4 Administered Medications: 10:36 Drug: NS 0.9% IV 1000 ml IV at 1 bolus Per protocol; to be given as a bolus over 60 hb minutes Route: IV; Rate: 1 bolus; Site: right antecubital; 11:55 Follow up: IV Status: Completed infusion; IV Intake: 1000ml aa5 10:36 Drug: Ketorolac IVP 15 mg IVP once Route: IVP; Site: right antecubital; hb 11:13 Follow up: Response: No adverse reaction aa5 11:13 Drug: Rocephin IV 1 grams IV at calculated rate once; Given slow IV push per pharmacy aa5 instructions Route: IV; Rate: calculated rate; Site: right antecubital; 11:15 Follow up: Response: No adverse reaction aa5 Disposition Summary: 09/10/25 11:23 Discharge Ordered Notes: Location: Home sb4 Problem: new sb4 Symptoms: have improved sb4 Condition: Stable sb4 Diagnosis - UTI/ Urinary tract infection, site not specified sb4 Followup: sb4 - With: Emergency Department - When: As needed - Reason: Fever > 102 F, Worsening of condition Discharge Instructions: - Discharge Summary Sheet sb4 - Urinary Tract Infection, Adult, [id number] sb4 Forms: - Antibiotic Education sb4 - Patient Portal Instructions sb4 - Leadership Thank You Letter sb4 Prescriptions: - Macrobid 100 mg Oral Capsule - take 1 capsule ORAL route every 12 hours for 7 days; 14 capsule; Refills: 0, sb4 Product Selection Permitted Signatures: Dispatcher [employer] Patti Mayorga RN RN aa5 Roxana Hyde RN RN Shayna Fraser PA-C PA-C sb4 Corrections: (The following items were deleted from the chart) 10:27 10:27 CBC+H.LAB.BRZ ordered. EDMS EDMS 10:27 10:27 BASIC METABOLIC PANEL+C.LAB.BRZ ordered. EDMS EDMS 10:27 10:27 Abdomen Pelvis W Con+CT.RAD.BRZ ordered. EDMS EDMS
[2025-09-10 12:22] VITALS: BP 134/84; TEMP 98.4; O2SAT 100
== END 2025-09-10 11:57 | disposition home or self-care (01) ==
LOC: ER 10:00
DX: N39.0 Urinary tract infection, site not specified (principal)
CPT/HCPCS: 36415; 74177; 80048; 81001; 81025; 85025; 87077; 87086; 87088; 87186; 96361; 96374; 96375; 99284; J0696; J1885; J7030; Q9967